=== PATIENT | female | born 1970 | race African-American/Black ===

== ENCOUNTER → 2022-09-09 | Outpatient (CLI) | payer OTHER, SELFPAY ==
[2022-09-09 12:30] LABS: ALB/GLOB Ratio 0.9 RATIO (0.9-2.4); AST(SGOT) 30 U/L (15-37); Alanine Aminotransfer ALT/SGPT 31 U/L (13-56); Albumin, Serum 4.3 g/dL (3.2-5.0); Alkaline Phosphatase 106 U/L (45-117); Anion Gap 6 (5-15); BUN 15 mg/dL (7-18); BUN/Creat Ratio 18.3 RATIO (10-20); Calcium,Total 9.4 mg/dL (8.5-10.1); Chloride 112 mmol/L (98-107); Cholesterol 296 mg/dL (200); Creatinine, Serum 0.82 mg/dL (0.55-1.02); EST Glomerular Filtration Rate 78 mL/min (>60); Est Glom Filt Rate - Afr Amer 94 mL/min (>60); Globulin 4.6 g/dL (2.2-4.2); Glucose 121 mg/dL (74-106); High Density Lipoprotein 63 mg/dL; Potassium 4.1 mmol/L (3.5-5.1); Protein, Total 8.9 g/dL (6.4-8.2); Sodium Level 141 mmol/L (136-145); Triglycerides 150 mg/dL; Very Low Density Lipoprotein 30 mg/dL (5-40)
== END | disposition home or self-care (01) ==
LOC: BIMLAB 10:13
PROVIDERS: Visit Provider Internal Medicine
DX: I10 Essential (primary) hypertension (principal)
CPT/HCPCS: 36415; 80053; 80061

== ENCOUNTER → 2022-10-03 | Outpatient (CLI) | payer OTHER, SELFPAY ==
--- NOTE | 2022-10-03 13:33 | BI_ITS ---
MAMMOGRAPHY - BILATERAL SCREENING 3-D TOMOSYNTHESIS REASON FOR EXAM: Female, 51 years old. Routine screening PERTINENT HISTORY: No significant family history. TECHNIQUE: 2-D mammograms and 3-D Tomosynthesis of the breast (s) were performed. CAD was performed. COMPARISON: No comparison mammograms available at this time. If any prior films become available, an addendum to this report can be generated. FINDINGS: The breast composition is composed of scattered fibroglandular density. Scattered benign calcifications are seen. No dense spiculated masses or suspicious microcalcifications are identified. No architectural distortion is identified. There is no skin thickening or retraction. BI/SCRN MAMM (CAD)W/SHENG BILAT IMPRESSION: No mammographic signs of malignancy. Routine yearly mammograms recommended. ASSESSMENT CATEGORY: BIRADS Category 2: Benign. A letter regarding these results will be sent to the patient by the facility within 30 days. FOLLOW UP RECOMMENDATION: Yearly follow up mammogram recommended. (A) Approximately 10% of breast cancers are not detected by mammography. A normal mammogram should not delay biopsy of a clinically suspicious abnormality. Electronically Signed: Nehemias Yi MD at 14:36 EDT ,
== END | disposition home or self-care (01) ==
LOC: OPBI 13:30
PROVIDERS: PCP Internal Medicine; Visit Provider Internal Medicine
DX: Z12.31 Encounter for screening mammogram for malignant neoplasm of breast (principal)
CPT/HCPCS: 77063; 77067

== ENCOUNTER 2022-10-10 11:01 | Outpatient (RCR) | payer OTHER, SELFPAY | END 2022-10-23 23:59 | LOC: NS 11:01 | PROVIDERS: PCP Internal Medicine; Visit Provider Internal Medicine | DX: Z71.3 Dietary counseling and surveillance (principal); E66.9 Obesity, unspecified | CPT/HCPCS: 97802 ==

== ENCOUNTER 2022-11-17 13:30 | Outpatient (RCR) | payer OTHER, SELFPAY | END 2022-11-23 23:59 | LOC: NS 13:30 | PROVIDERS: PCP Internal Medicine; Referring Provider Internal Medicine; Visit Provider Internal Medicine | DX: Z71.3 Dietary counseling and surveillance (principal); E66.9 Obesity, unspecified; Z68.31 Body mass index [BMI] 31.0-31.9, adult | CPT/HCPCS: 97803 ==

== ENCOUNTER → 2022-12-12 | Outpatient (CLI) | payer OTHER, SELFPAY ==
[2022-12-12 17:05] LABS: Absolute Lymphocyte Count 1.38 X10^3/uL (0.83-4.51); Absolute Neutrophil Count 1.6 X10^3/uL (2.0-7.7); Basophil# 0.07 X10^3/uL; Basophil% 1.8 % (0-1); Eosinophil# 0.31 X10^3/uL; Eosinophils% 8.1 % (0-5); Hematocrit 39.6 % (37-47); Hemoglobin 13.1 g/dL (12.0-15.0); Lymphocyte # 1.38 X10^3/ul (0.83-4.51); Lymphocyte % 36.2 % (19-41); Mean Corp Hgb Conc 33.1 g/dL (32-36); Mean Corpuscular Hgb 29.2 pg (27.0-32.0); Mean Corpuscular Volume 88.2 fL (81-99); Mean Platelet Vol. 11.5 fl (6.2-12.0); Monocyte# 0.45 X10^3/uL; Monocyte% 11.8 % (0-10); NRBC Flagged by Analyzer 0 % (0-5); Neutrophil % 42.1 % (47-70); Platelet Count 375 K/mm3 (150-450); RBC Distribution Width CV 14.3 % (11.6-14.6); Red Blood Count 4.49 M/mm3 (4.2-5.4); White Blood Count 3.8 K/mm3 (4.4-11.0)
[2022-12-12 17:15] LABS: ALB/GLOB Ratio 0.9 RATIO (0.9-2.4); AST(SGOT) 27 U/L (15-37); Alanine Aminotransfer ALT/SGPT 37 U/L (13-56); Albumin, Serum 3.8 g/dL (3.2-5.0); Alkaline Phosphatase 122 U/L (45-117); Anion Gap 5 (5-15); BUN 12 mg/dL (7-18); BUN/Creat Ratio 15.6 RATIO (10-20); Calcium,Total 8.9 mg/dL (8.5-10.1); Chloride 113 mmol/L (98-107); Cholesterol 176 mg/dL (200); Creatinine, Serum 0.77 mg/dL (0.55-1.02); EST Glomerular Filtration Rate 84 mL/min (>60); Est Glom Filt Rate - Afr Amer 101 mL/min (>60); Globulin 4.2 g/dL (2.2-4.2); Glucose 103 mg/dL (74-106); High Density Lipoprotein 62 mg/dL; Potassium 4.1 mmol/L (3.5-5.1); Sodium Level 141 mmol/L (136-145); Triglycerides 85 mg/dL; Very Low Density Lipoprotein 17 mg/dL (5-40)
== END | disposition home or self-care (01) ==
LOC: BIMLAB 14:48
PROVIDERS: PCP Internal Medicine; Referring Provider Internal Medicine; Visit Provider Internal Medicine
DX: I10 Essential (primary) hypertension (principal); E78.5 Hyperlipidemia, unspecified
CPT/HCPCS: 36415; 80053; 80061; 85025

== ENCOUNTER → 2023-07-26 | Outpatient (CLI) | payer OTHER, SELFPAY ==
[2023-07-26 16:40] LABS: Absolute Lymphocyte Count 1.89 X10^3/uL (0.83-4.51); Absolute Neutrophil Count 2.7 X10^3/uL (2.0-7.7); Basophil% 1.7 % (0-1); Eosinophil# 0.64 X10^3/uL; Eosinophils% 11.2 % (0-5); Hematocrit 43.4 % (37-47); Hemoglobin 14.2 g/dL (12.0-15.0); Lymphocyte # 1.89 X10^3/ul (0.83-4.51); Mean Corp Hgb Conc 32.7 g/dL (32-36); Mean Corpuscular Hgb 28.3 pg (27.0-32.0); Mean Corpuscular Volume 86.5 fL (81-99); Mean Platelet Vol. 11.4 fl (6.2-12.0); Monocyte# 0.44 X10^3/uL; Monocyte% 7.7 % (0-10); NRBC Flagged by Analyzer 0 % (0-5); Neutrophil # 2.65 X10^3/uL (2.7-7.7); Neutrophil % 46.2 % (47-70); Platelet Count 358 K/mm3 (150-450); RBC Distribution Width CV 15.3 % (11.6-14.6); RBC Distribution Width SD 48.2 fl (35.1-43.9); Red Blood Count 5.02 M/mm3 (4.2-5.4); White Blood Count 5.7 K/mm3 (4.4-11.0)
[2023-07-26 17:19] LABS: Anion Gap 2 (5-15); BUN 15 mg/dL (7-18); Calcium,Total 9.7 mg/dL (8.5-10.1); Chloride 111 mmol/L (98-107); Creatinine, Serum 0.79 mg/dL (0.55-1.02); EST Glomerular Filtration Rate 81 mL/min (>60); Est Glom Filt Rate - Afr Amer 98 mL/min (>60); Glucose 95 mg/dL (74-106); Potassium 4.5 mmol/L (3.5-5.1); Sodium Level 138 mmol/L (136-145); T4 Free Direct 1.12 ng/dL (0.76-1.46); Thyroid Stim Hormone (TSH) 2.56 uIU/mL (0.358-3.74)
== END | disposition home or self-care (01) ==
LOC: BIMLAB 15:19
PROVIDERS: PCP Internal Medicine; Referring Provider Internal Medicine; Visit Provider Internal Medicine
DX: I10 Essential (primary) hypertension (principal)
CPT/HCPCS: 36415; 80048; 84439; 84443; 85025

== ENCOUNTER → 2024-02-16 | Outpatient (CLI) | payer OTHER, SELFPAY ==
[2024-02-16 16:15] LABS: Absolute Lymphocyte Count 1.84 X10^3/uL (0.83-4.51); Absolute Neutrophil Count 1.7 X10^3/uL (2.0-7.7); Basophil% 2.2 % (0-1); Eosinophil# 0.38 X10^3/uL; Eosinophils% 8.4 % (0-5); Hematocrit 42.4 % (37-47); Hemoglobin 14.2 g/dL (12.0-15.0); Lymphocyte # 1.84 X10^3/ul (0.83-4.51); Lymphocyte % 40.8 % (19-41); Mean Corp Hgb Conc 33.5 g/dL (32-36); Mean Corpuscular Hgb 29.5 pg (27.0-32.0); Mean Corpuscular Volume 88.1 fL (81-99); Mean Platelet Vol. 11.7 fl (6.2-12.0); Monocyte# 0.44 X10^3/uL; Monocyte% 9.8 % (0-10); NRBC Flagged by Analyzer 0 % (0-5); Neutrophil # 1.74 X10^3/uL (2.7-7.7); Neutrophil % 38.6 % (47-70); Platelet Count 323 K/mm3 (150-450); RBC Distribution Width CV 13.3 % (11.6-14.6); Red Blood Count 4.81 M/mm3 (4.2-5.4); White Blood Count 4.5 K/mm3 (4.4-11.0)
[2024-02-16 16:29] LABS: ALB/GLOB Ratio 0.9 RATIO (0.9-2.4); AST(SGOT) 27 U/L (15-37); Alanine Aminotransfer ALT/SGPT 42 U/L (13-56); Albumin, Serum 3.9 g/dL (3.2-5.0); Alkaline Phosphatase 119 U/L (45-117); Anion Gap 6 (5-15); BUN 7 mg/dL (7-18); BUN/Creat Ratio 8.6 RATIO (10-20); Calcium,Total 9.3 mg/dL (8.5-10.1); Chloride 111 mmol/L (98-107); Cholesterol 187 mg/dL (200); Creatinine, Serum 0.81 mg/dL (0.55-1.02); EST Glomerular Filtration Rate 78 mL/min (>60); Est Glom Filt Rate - Afr Amer 94 mL/min (>60); Globulin 4.5 g/dL (2.2-4.2); Glucose 93 mg/dL (74-106); High Density Lipoprotein 61 mg/dL; Protein, Total 8.4 g/dL (6.4-8.2); Sodium Level 142 mmol/L (136-145); Triglycerides 159 mg/dL; Very Low Density Lipoprotein 32 mg/dL (5-40)
== END | disposition home or self-care (01) ==
LOC: BIMLAB 14:46
PROVIDERS: PCP Internal Medicine; Referring Provider Internal Medicine; Visit Provider Internal Medicine
DX: I10 Essential (primary) hypertension (principal)
CPT/HCPCS: 36415; 80053; 80061; 85025

== ENCOUNTER → 2024-08-06 | Outpatient (CLI) | payer OTHER, SELFPAY ==
[2024-08-06 12:22] LABS: Estradiol 12.8 pg/mL
[2024-08-12 11:08] LABS: HPV APTIMA, High Risk Negative (Negative)
== END | disposition home or self-care (01) ==
LOC: BWCLAB 11:22
PROVIDERS: PCP Internal Medicine; Referring Provider Nurse Practitioner Women's Health; Visit Provider Nurse Practitioner Women's Health
DX: Z12.4 Encounter for screening for malignant neoplasm of cervix (principal); N95.1 Menopausal and female climacteric states; N89.8 Other specified noninflammatory disorders of vagina
CPT/HCPCS: 36415; 82670; 83001; 87070; 87205; 87624; 88175; G0145

== ENCOUNTER → 2024-10-30 | Outpatient (CLI) | payer OTHER, SELFPAY ==
[2024-10-30 12:53] LABS: Absolute Lymphocyte Count 1.49 X10^3/uL (0.83-4.51); Basophil# 0.09 X10^3/uL; Basophil% 2.1 % (0-1); Eosinophil# 0.35 X10^3/uL; Hematocrit 42.3 % (37-47); Hemoglobin 14.6 g/dL (12.0-15.0); Lymphocyte # 1.49 X10^3/ul (0.83-4.51); Lymphocyte % 33.9 % (19-41); Mean Corp Hgb Conc 34.5 g/dL (32-36); Mean Corpuscular Hgb 29.9 pg (27.0-32.0); Mean Corpuscular Volume 86.5 fL (81-99); Monocyte# 0.41 X10^3/uL; Monocyte% 9.3 % (0-10); NRBC Flagged by Analyzer 0 % (0-5); Neutrophil # 2.04 X10^3/uL (2.7-7.7); Neutrophil % 46.5 % (47-70); Platelet Count 284 K/mm3 (150-450); RBC Distribution Width CV 13.8 % (11.6-14.6); RBC Distribution Width SD 43.8 fl (35.1-43.9); Red Blood Count 4.89 M/mm3 (4.2-5.4); White Blood Count 4.4 K/mm3 (4.4-11.0)
[2024-10-30 14:01] LABS: ALB/GLOB Ratio 1.2 RATIO (0.9-2.4); AST(SGOT) 35 U/L (<=31); Alanine Aminotransfer ALT/SGPT 36 U/L (<=34); Albumin, Serum 4.4 g/dL (3.5-5.0); Alkaline Phosphatase 110 U/L (35-104); Anion Gap 12 (5-15); BUN 14 mg/dL (4-19); BUN/Creat Ratio 19.7 RATIO (10-20); Calcium,Total 9.5 mg/dL (7.6-11.0); Chloride 110 mmol/L (98-108); Cholesterol 218 mg/dL (<=200); EST Glomerular Filtration Rate 103 (>60); Globulin 3.6 g/dL (2.2-4.2); Glucose 119 mg/dL (70-99); High Density Lipoprotein 50 mg/dL; Low Density Lipoprotein Calc. 132 mg/dL; Sodium Level 141 mmol/L (133-145); Total Bilirubin 1.07 mg/dL (0.00-1.30); Triglycerides 181 mg/dL; Very Low Density Lipoprotein 36 mg/dL (5-40); cholesterol:hdl ratio screen 4.34
[2024-10-30 14:14] LABS: Vitamin D,25 Hydroxy 20.7 ng/mL (30-100)
== END | disposition home or self-care (01) ==
LOC: BIMLAB 08:13
PROVIDERS: PCP Internal Medicine; Referring Provider Physician Assistant; Visit Provider Physician Assistant
DX: I10 Essential (primary) hypertension (principal); E78.5 Hyperlipidemia, unspecified; E66.9 Obesity, unspecified; E55.9 Vitamin D deficiency, unspecified
CPT/HCPCS: 36415; 80053; 80061; 82306; 84443; 85025

== ENCOUNTER → 2025-05-23 | Outpatient (CLI) | payer OTHER, SELFPAY ==
--- OUTSIDE RECORDS SUMMARY | 2025-05-23 07:55 | XMS RPT_ITS | CCD ---
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 ALMAGUER During your visit today, we recorded the following information about you: Pulse Respiration Blood pressure Weight 63/minute 14/minute 134/86 108 kg Height 1.791 m Rosalind Almaguer MD 01/20/2025 8:35 AM Signed . [facility] [place] Note Patient name: Julieta Valle PCP: Kenzie Espana MD Referring Physician: Self Recording using ambient Appiphany software for draft documentation of the visit was discussed with the patient/authorized senior account representative; all questions welcomed and answered. Patient/authorized senior account representative agreed to proceed CC: Lung nodules noted on chest x-ray HPI: Julieta Valle 54 year old female former 9-pack-year smoker, quitting in 1998 with PMH significant for obesity, asthma, HTN, and HLD. Recently seen in ED for chest pain in association with elevated BP. CXR showed nodular densities in both lung colon with question of EKG pad on one side and nipple shadow on the other. She has a history of asthma since childhood which she describes as mild. No need for controller inhaler therapy. She denies any significant respiratory symptoms such as shortness of breath, wheezing, cough. She had chest pain associated with her hypertensive episode. No prior history of cancer or family history of cancer. She is a former smoker 1 pack a day for 9 years. She quit more than 15 years ago. DATA: Imaging / Diagnostic Studies: DATE OF EXAM: Nov 24 2024 3:43AM EGX 5291 - XR CHEST 2V FRONTAL/LAT / IMPRESSION: No acute radiographic abnormality. Questionable nodular densities, uncertain whether they are artifactual. Non-emergent follow-up after removal of overlying objects and placement of nipple markers recommended. I personally reviewed the images as well as with the patient and agree with the above assessment PAST MEDICAL HISTORY Diagnosis Date Asthma BMI 34.0-34.9,adult 06/30/2016 Obesity (BMI 30.0-34.9) 06/30/2016 Oral herpes simplex infection 09/18/2013 Other and unspecified hyperlipidemia 09/18/2013 Unspecified essential hypertension 08/19/2013 ALLERGIES No Known Allergies amLODIPine-Valsartan 5-320 mg per tablet Take 1 tablet by mouth once daily. cholecalciferol, Vitamin D3, (VITAMIN D3) 1,250 mcg (50,000 unit) cap capsule Take 1 capsule by mouth one time a week. albuterol HFA (PROAIR HFA) 90 mcg/actuation inhaler Inhale 2 Puffs as instructed every 4 hours as needed. atorvastatin (LIPITOR) 20 mg tablet Take 20 mg by mouth once daily. Social History Tobacco Use Smoking status: Former Average packs/day: 1 pack/day for 9.0 years (9.0 ttl pk-yrs) Types: Cigarettes Start date: 1989 Smokeless tobacco: Never Tobacco comments: Started at age 19 Vaping Use Vaping status: Never Used Substance Use Topics Alcohol use: Yes Drug use: No FAMILY HISTORY Problem Relation Age of Onset Hypertension Mother Hypertension Father Diabetes Father No Ocular Disease Other PAST SURGICAL HISTORY Procedure Laterality Date NONE PMH, Social history, family history and surgical history reviewed and updated in EMR REVIEW OF SYSTEMS: CONSTITUTIONAL: No fevers, chills, nightsweats, unintended weight loss HEENT: Denies nasal congestion/sinus symptoms, allergy problems. EYES: No visual changes CARDIOVASCULAR: No chest pain, dyspnea, palpitations, orthopnea, edema. PULM: See HPI GI: No reflux NEURO: No strokelike symptoms PSY: No concerns INTEGUMENTARY: No new skin changes, eczema PHYSICAL EXAMINATION: BP 134/86 Pulse 63 Resp 14 Ht 5' 10.5 (1.79m) Wt 238 lb (108.0kg) SpO2 96% LMP 01/07/2023 BMI 33.66 kg/(m2). General Appearance: Age-appropriate female, NAD. Skin: Skin color, texture, turgor normal, no suspicious rashes or lesions. Head: Normocephalic, no masses, lesions, tenderness or abnormalities. Neck: No masses or adenopathy. Lungs: Not labored, normal to percussion, no wheezes or crackles. Heart: Regular rate and rhythm, no murmurs. Extremities:, No clubbing. Assessment/Plan: 1. Abnormal chest x-ray with multiple nodules -Questionable nodules. Repeat chest x-ray with nipple markers. If nodularity persistent, will order CT of the chest Rosalind Almaguer MD [facility] [place] Allergies As of Date: 01/20/2025 (No Known Allergies) Date Reviewed: 01/20/2025 Reviewed by: Rosalind Almaguer MD - Fully Assessed Reason for Visit: New Patient [172] Cmt: Lung nodule Primary Visit Diagnosis:Abnormal CXR with multiple nodules [R91.8] Order(s):XR CHEST 2V FRONTAL/LAT [[id number]] Order #: [id number] FUTURE Prescriptions as of 01/20/2025 - amLODIPine-Valsartan 5-320 mg per tablet Take 1 tablet by mouth once daily. - cholecalciferol, Vitamin D3, (VITAMIN D3) 1,250 (more content not included)... Normal [facility] XR CHEST 2V FRONTAL/LATon XR CHEST 2V FRONTAL/LAT * * *Final Repor t* * * DATE OF EXAM: Jan 20 2025 9:26AM WRX 5291 - XR CHEST 2V FRONTAL/LAT / PROCEDURE REASON: * * * * Physician Interpretation * * * * EXAMINATION: CHEST RADIOGRAPH (2 VIEW FRONTAL and LATERAL) CLINICAL HISTORY: Abnormal chest x-ray. MQ: XC2_6 EXAM DATE/TIME: 01/20/2025 9:26 AM COMPARISON: No relevant prior studies available. RESULT: Lines, tubes, and devices: None. Lungs and pleura: No consolidation. No definite lung nodules visualized on the current study. No lung mass. No pleural effusion. No pneumothorax. Cardiomediastinal silhouette: Normal cardiomediastinal silhouette. Bones and soft tissues: Unremarkable. IMPRESSION: No acute radiographic abnormality. Sociology Professor: JACK Transcribe Date/Time: Jan 20 2025 11:26A Dictated by : DULCE SALINAS MD This examination was interpreted and the report reviewed and electronically signed by: DULCE SALINAS MD on Jan 20 2025 11:27AM EST [id number] CN Normal [facility] XR Chest PA and Lateralon IMPRESSION: No acute radiographic abnormality. Sociology Professor: [facility] Transcribe Date/Time: Jan 20 2025 11:26A Dictated by : DULCE SALINAS MD This examination was interpreted and the report reviewed and electronically signed by: DULCE SALINAS MD on Jan 20 2025 11:27AM EST DIVISION OF RADIOLOGY * * *Final Report* * * DATE OF EXAM: Jan 20 2025 9:26AM WRX 5291 - XR CHEST 2V FRONTAL/LAT / PROCEDURE REASON: * * * * Physician Interpretation * * * * EXAMINATION: CHEST RADIOGRAPH (2 VIEW FRONTAL & LATERAL) CLINICAL HISTORY: Abnormal chest x-ray. MQ: XC2_6 EXAM DATE/TIME: 01/20/2025 9:26 AM COMPARISON: No relevant prior studies available. RESULT: Lines, tubes, and devices: None. Lungs and pleura: No consolidation. No definite lung nodules visualized on the current study. No lung mass. No pleural effusion. No pneumothorax. Cardiomediastinal silhouette: Normal cardiomediastinal silhouette. Bones and soft tissues: Unremarkable. DIVISION OF RADIOLOGY Provider, [facility] [place] - 01/20/2025 * * *Final Report* * * DATE OF EXAM: Jan 20 2025 9:26AM WRX 5291 - XR CHEST 2V FRONTAL/LAT / PROCEDURE REASON: * * * * Physician Interpretation * * * * EXAMINATION: CHEST RADIOGRAPH (2 VIEW FRONTAL & LATERAL) CLINICAL HISTORY: Abnormal chest x-ray. MQ: XC2_6 EXAM DATE/TIME: 01/20/2025 9:26 AM COMPARISON: No relevant prior studies available. RESULT: Lines, tubes, and devices: None. Lungs and pleura: No consolidation. No definite lung nodules visualized on the current study. No lung mass. No pleural effusion. No pneumothorax. Cardiomediastinal silhouette: Normal cardiomediastinal silhouette. Bones and soft tissues: Unremarkable. IMPRESSION IMPRESSION: No acute radiographic abnormality. Sociology Professor: [facility] Transcribe Date/Time: Jan 20 2025 11:26A Dictated by : DULCE SALINAS MD This examination was interpreted and the report reviewed and electronically signed by: DULCE SALINAS MD on Jan 20 2025 11:27AM EST [facility] Radiology Study observation (narrative) Che valverde [facility] XR Chest PA and LateralOrder ed By: [facility] Provider on 01-20-2025 [facility] Office Visit Reporton 2024 Office Visit Report [facility] [address] [place] [address] OFFICE VISIT Date of Service: 11/26/24 MR#: [id number] Acct: [id number] Patient: JULIETA VALLE Rep #: [id number] : 1970 Provider: ILIANA NURSE Age/Sex: 53/F Location: [facility] [place] Status: Signed Intake Vital Signs 11/13/24 16:13 11/26/24 15:23 Height 5 ft 10 in Weight: 236 lb BMI 33.8 BP 162/108 H 152/94 H Blood Pressure Location Rt brachial Lt brachial Position Sitting Sitting Respiration 16 Pulse 69 Pulse Source Monitor Temp 96.7 F L Temp Source Temporal Pulse Oximetry (%) 96 Oxygen Delivery Method room air Intake Visit Reasons: BP CHECK Chief Complaint: bp issues Allergies No Known Allergies Allergy (Verified 11/13/24 16:07) Nurse's Note: Pt states she was in [facility] ER on 11/23/24. Pt states her Bp has been running high and was and chest pains and palpitations accompanied this. Pt states a whole workup was ran including ekg and labs. Cardiac was ruled out but is still awaiting more tested... [facility] records releasem signed and faxed to obtain records. Pt did want to see PCP and not PA or TRAY WORKER as she has not seen her in awhile. Pt states her Bp this morning at 12:30am was 152/103 pt did not have BP cuff w/ her as it has already been checked for accuracy. Pt currently denies chest pain,palptations headaches or vision changes. 11/27/24 1326 Date Bryant Winter Signature: Date (if applicable) CC: Normal [facility] CBC W Auto Differential pane l (Bld)on 11-24-2024 Basophils (Bld) [#/Vol] 0.13 10*3/uL High <0.11 [facility] Comment on above: Order Comment: Speci men Type: BLOOD SPECIMEN Ordering Facility: [facility] Address: [address] [place] [address] Performed By: #### 5 5454-3, 07361-1 #### [facility] CLIA [id number] [address] [place] [address] [place] [address] [place] Basophils/100 WBC (Bld) 2.0 % Normal [facility] Comment on above: Order Comment: Speci men Type: BLOOD SPECIMEN Ordering Facility: [facility] Address: [address] [place] [address] Performed By: #### 5 5454-3, 21229-1 #### [facility] CLIA [id number] [address] [place] [address] [place] Differential cell count method Nom (Bld) Auto Normal [facility] Comment on above: Order Comment: Speci men Type: BLOOD SPECIMEN Ordering Facility: [facility] Address: [address] [place] [address] Performed By: #### 5 5454-3, 98439-3 #### [facility] CLIA [id number] [address] [place] [address] [place] Eosinophils (Bld) [#/Vol] 0.44 10*3/uL Normal <0.46 [facility] Comment on above: Order Comment: Speci men Type: BLOOD SPECIMEN Ordering Facility: [facility] Address: [address] [place] [address] Performed By: #### 5 5454-3, 43682-7 #### [facility] CLIA [id number] [address] [place] [address] [place] Eosinophils/100 WBC (Bld) 6.7 % Normal [facility] Comment on above: Order Comment: Speci men Type: BLOOD SPECIMEN Ordering Facility: [facility] Address: [address] [place] [address] Performed By: #### 5 5454-3, 51968-8 #### [facility] CLIA [id number] [address] [place] [address] [place] Erythrocyte distribution width (RBC) [Ratio] 13.5 % Normal 11.5-15.0 [facility] Comment on above: Order Comment: Speci men Type: BLOOD SPECIMEN Ordering Facility: [facility] Address: [address] [place] [address] Performed By: #### 5 5454-3, 46950-4 #### [facility] CLIA [id number] [address] [place] [address] [place] Hematocrit (Bld) [Volume fraction] 43.2 % Normal 36.0-46.0 [facility] Comment on above: Order Comment: Speci men Type: BLOOD SPECIMEN Ordering Facility: [facility] Address: [address] [place] [address] Performed By: #### 5 5454-3, 52922-7 #### [facility] CLIA [id number] [address] [place] [address] [place] Hemoglobin (Bld) [Mass/Vol] 15.0 g/dL Normal 11.5-15.5 [facility] Comment on above: Order Comment: Speci men Type: BLOOD SPECIMEN Ordering Facility: [facility] Address: [address] [place] [address] Performed By: #### 5 5454-3, 98881-2 #### [facility] CLIA [id number] [address] [place] [address] [place] Immature granulocytes (Bld) [#/Vol] 10*3/uL Normal <0.10 [facility] Comment on above: Order Comment: Speci men Type: BLOOD SPECIMEN Ordering Facility: [facility] Address: [address] [place] [address] Performed By: #### 5 5454-3, 69943-0 #### [facility] CLIA [id number] [address] [place] [address] [place] Immature granulocytes/100 WBC (Bld) 0.3 % Normal [facility] Comment on above: Order Comment: Speci men Type: BLOOD SPECIMEN Ordering Facility: [facility] Address: [address] [place] [address] Performed By: #### 5 5454-3, 28711-9 #### [facility] CLIA [id number] [address] [place] [address] [place] Lymphocytes (Bld) [#/Vol] 2.26 10*3/uL Normal 1.00-4.00 [facility] Comment on above: Order Comment: Speci men Type: BLOOD SPECIMEN Ordering Facility: [facility] Address: [address] [place] [address] Performed By: #### 5 5454-3, 90553-5 #### [facility] CLIA [id number] [address] [place] [address] [place] Lymphocytes/100 WBC (Bld) 34.7 % Normal [facility] Comment on above: Order Comment: Speci men Type: BLOOD SPECIMEN Ordering Facility: [facility] Address: [address] [place] [address] Performed By: #### 5 5454-3, 59778-0 #### [facility] CLIA [id number] [address] [place] [address] [place] MCH (RBC) [Entitic mass] 29.7 pg Normal 26.0-34.0 [facility] Comment on above: Order Comment: Speci men Type: BLOOD SPECIMEN Ordering Facility: [facility] Address: [address] [place] [address] Performed By: #### 5 5454-3, 61150-1 #### [facility] CLIA [id number] [address] [place] [address] [place] MCHC (RBC) [Mass/Vol] 34.7 g/dL Normal 30.5-36.0 [facility] Comment on above: Order Comment: Speci men Type: BLOOD SPECIMEN Ordering Facility: [facility] Address: [address] [place] [address] Performed By: #### 5 5454-3, 05789-2 #### [facility] CLIA [id number] [address] [place] [address] [place] MCV (RBC) [Entitic vol] 85.5 fL Normal 80.0-100.[address] [facility] Comment on above: Order Comment: Speci men Type: BLOOD SPECIMEN Ordering Facility: [facility] Address: [address] [place] [address] Performed By: #### 5 5454-3, 57699-3 #### [facility] CLIA [id number] [address] [place] [address] [place] Monocytes (Bld) [#/Vol] 0.68 10*3/uL Normal <0.87 [facility] Comment on above: Order Comment: Speci men Type: BLOOD SPECIMEN Ordering Facility: [facility] Address: [address] [place] [address] Performed By: #### 5 5454-3, 76637-5 #### [facility] CLIA [id number] [address] [place] [address] [place] Monocytes/100 WBC (Bld) 10.4 % Normal [facility] Comment on above: Order Comment: Speci men Type: BLOOD SPECIMEN Ordering Facility: [facility] Address: [address] [place] [address] Performed By: #### 5 5454-3, 39886-3 #### [facility] CLIA [id number] [address] [place] [address] [place] Neutrophils (Bld) [#/Vol] 2.99 10*3/uL Normal 1.45-7.50 [facility] Comment on above: Order Comment: Speci men Type: BLOOD SPECIMEN Ordering Facility: [facility] Address: [address] [place] [address] Performed By: #### 5 5454-3, 43723-7 #### [facility] CLIA [id number] [address] [place] [address] [place] Neutrophils/100 WBC (Bld) 45.9 % Normal [facility] Comment on above: Order Comment: Speci men Type: BLOOD SPECIMEN Ordering Facility: [facility] Address: [address] [place] [address] Performed By: #### 5 5454-3, 14066-9 #### [facility] CLIA [id number] [address] [place] [address] [place] Nucleated RBC (Bld) [#/Vol] 10*3/uL Normal <0.01 [facility] Comment on above: Order Comment: Speci men Type: BLOOD SPECIMEN Ordering Facility: [facility] Address: [address] [place] [address] Performed By: #### 5 5454-3, 09653-2 #### [facility] CLIA [id number] [address] [place] [address] [place] Nucleated RBC/100 WBC (Bld) [Ratio] 0.0 /100 WBC Normal [facility] Comment on above: Order Comment: Speci men Type: BLOOD SPECIMEN Ordering Facility: [facility] Address: [address] [place] [address] Performed By: #### 5 5454-3, 67010-6 #### [facility] CLIA [id number] [address] [place] [address] [place] Platelet mean volume (Bld) [Entitic vol] 11.2 fL Normal 9.0-12.7 [facility] Comment on above: Order Comment: Speci men Type: BLOOD SPECIMEN Ordering Facility: [facility] Address: [address] [place] [address] Performed By: #### 5 5454-3, 10674-6 #### [facility] CLIA [id number] [address] [place] [address] [place] Platelets (Bld) [#/Vol] 298 10*3/uL Normal 150-400 [facility] Comment on above: Order Comment: Speci men Type: BLOOD SPECIMEN Ordering Facility: [facility] Address: [address] [place] [address] Performed By: #### 5 5454-3, 52019-2 #### [facility] CLIA [id number] [address] [place] [address] [place] RBC (Bld) [#/Vol] 5.05 10*6/uL Normal 3.90-5.20 [facility] Comment on above: Order Comment: Speci men Type: BLOOD SPECIMEN Ordering Facility: [facility] Address: [address] [place] [address] Performed By: #### 5 5454-3, 84364-0 #### [facility] CLIA [id number] [address] [place] [address] [place] WBC (Bld) [#/Vol] 6.52 10*3/uL Normal 3.70-11.00 [facility] Comment on above: Order Comment: Speci men Type: BLOOD SPECIMEN Ordering Facility: [facility] Address: [address] [place] [address] Performed By: #### 5 5454-3, 22556-2 #### [facility] CLIA [id number] [address] [place] [address] [place] Comprehensive metabolic 2000 panelon 11-24-2024 Albumin [Mass/Vol] 4.5 g/dL Normal 3.9-4.9 [facility] Comment on above: Order Comment: Speci men Type: BLOOD SPECIMEN Ordering Facility: [facility] Address: [address] [place] [address] Performed By: #### 2 4323-8, 79484-3, [id number] #### [facility] CLIA [id number] [address] [place] [address] [place] ALP [Catalytic activity/Vol] 127 U/L High 34-123 [facility] Comment on above: Order Comment: Speci men Type: BLOOD SPECIMEN Ordering Facility: [facility] Address: [address] [place] [address] Performed By: #### 2 4323-8, 44924-9, [id number] #### [facility] CLIA [id number] [address] [place] [address] [place] ALT [Catalytic activity/Vol] 34 U/L Normal 7-38 [facility] Comment on above: Order Comment: Speci men Type: BLOOD SPECIMEN Ordering Facility: [facility] Address: [address] [place] [address] Performed By: #### 2 4323-8, , [id number] #### [facility] CLIA [id number] [address] [place] [address] [place] Anion gap [Moles/Vol] 14 mmol/L Normal 8-15 [facility] Comment on above: Order Comment: Speci men Type: BLOOD SPECIMEN Ordering Facility: [facility] Address: [address] [place] [address] Performed By: #### 2 4323-8, , [id number] #### [facility] CLIA [id number] [address] [place] [address] [place] AST [Catalytic activity/Vol] 35 U/L Normal 13-35 [facility] Comment on above: Order Comment: Speci men Type: BLOOD SPECIMEN Ordering Facility: [facility] Address: [address] [place] [address] Result Comment: Resu lts may be falsely increased due to interference from hemolysis. Suggest reorder as clinically indicated. Performed By: #### 2 4323-8, , [id number] #### [facility] CLIA [id number] [address] [place] [address] [place] Bilirubin [Mass/Vol] 0.7 mg/dL Normal 0.2-1.3 [facility] Comment on above: Order Comment: Speci men Type: BLOOD SPECIMEN Ordering Facility: [facility] Address: [address] [place] [address] Performed By: #### 2 4323-8, , [id number] #### [facility] CLIA [id number] [address] [place] [id number] [place] Calcium [Mass/Vol] 9.4 mg/dL Normal 8.5-10.2 [facility] Comment on above: Order Comment: Speci men Type: BLOOD SPECIMEN Ordering Facility: [facility] Address: [address] [place], [place] [address] Performed By: #### 2 432-8, , [id number] #### [facility] CLIA [id number] [address] [place] [address] [place] Chloride [Moles/Vol] 109 mmol/L High 98-107 [facility] Comment on above: Order Comment: Speci men Type: BLOOD SPECIMEN Ordering Facility: [facility] Address: [address] [place] [address] Performed By: #### 2 4328, , [id number] #### [facility] CLIA [id number] [address] [place], [place] [address] [place] CO2 [Moles/Vol] 19 mmol/L Low 22-30 [facility] Comment on above: Order Comment: Speci men Type: BLOOD SPECIMEN Ordering Facility: [facility] Address: [address] [place], [place] [address] Performed By: #### 2 432-8, , [id number] #### [facility] CLIA [id number] [address] [place], [place] [address] [place] Creatinine [Mass/Vol] 0.59 mg/dL Normal 0.58-0.96 [facility] Comment on above: Order Comment: Speci men Type: BLOOD SPECIMEN Ordering Facility: [facility] Address: [address] [place], [place] [address] Performed By: #### 2 4323-8, , [id number] #### [facility] CLIA [id number] [address] [place] [address] [place] Creatinine and Glomerular filtration rate.predicted panel (S/P/Bld) 107 mL/min/1.73m??? Normal >=60 [facility] Comment on above: Order Comment: Moises almendarez Type: BLOOD SPECIMEN Ordering Facility: [facility] Address: [address] [place] [address] Result Comment: Astrid mated Glomerular Filtration Rate (eGFR) is calculated using the 2020 CKD-EPI creatinine equation. This equation utilizes serum creatinine, sex, and age as parameters. The creatinine assay has traceable calibration to isotope dilution-mass spectrometry. Refer to KDIGO guidelines for clinical interpretation. In patients with unstable renal function, e.g. those with acute kidney injury, the eGFR may not accurately reflect actual GFR. Performed By: #### 2 4323-8, 02257-9, [id number] #### [facility] CLIA [id number] [address] [place] [address] [place] Glucose [Mass/Vol] 106 mg/dL High 74-99 [facility] Comment on above: Order Comment: Moises almendarez Type: BLOOD SPECIMEN Ordering Facility: [facility] Address: [address] [place] [address] Result Comment: The [place] Diabetes Association (ADA) provides guidance for cutoff values for fasting glucose and random glucose. The ADA defines fasting as no caloric intake for at least 8 hours. Fasting plasma glucose results between 100 to 125 mg/dL indicate increased risk for diabetes (prediabetes). Fasting plasma glucose results greater than or equal to 126 mg/dL meet the criteria for diagnosis of diabetes. In the absence of unequivocal hyperglycemia, results should be confirmed by repeat testing. In a patient with classic symptoms of hyperglycemia or hyperglycemic crisis, random plasma glucose results greater than or equal to 200 mg/dL meet the criteria for diagnosis of diabetes. Reference: Standards of Medical Care in Diabetes 2016, [place] Diabetes Association. Diabetes Care. 2016.39(Suppl 1). Performed By: #### 2 4323-8, 12471-3, [id number] #### [facility] CLIA [id number] [address] [place] [address] [place] Potassium [Moles/Vol] 4.0 mmol/L Normal 3.7-5.1 [facility] Comment on above: Order Comment: Speci men Type: BLOOD SPECIMEN Ordering Facility: [facility] Address: [address] [place] [address] Performed By: #### 2 4323-8, , [id number] #### [facility] CLIA [id number] [address] [place] [address] [place] Protein [Mass/Vol] 8.1 g/dL High 6.3-8.0 [facility] Comment on above: Order Comment: Speci men Type: BLOOD SPECIMEN Ordering Facility: [facility] Address: [address] [place] [address] Performed By: #### 2 4323-8, , [id number] #### [facility] CLIA [id number] [address] [place] [address] [place] Sodium [Moles/Vol] 142 mmol/L Normal 136-144 [facility] Comment on above: Order Comment: Speci men Type: BLOOD SPECIMEN Ordering Facility: [facility] Address: [address] [place] [address] Performed By: #### 2 4323-8, , [id number] #### [facility] CLIA [id number] [address] [place] [address] [place] Urea nitrogen [Mass/Vol] 11 mg/dL Normal 7-21 [facility] Comment on above: Order Comment: Speci men Type: BLOOD SPECIMEN Ordering Facility: [facility] Address: [address] [place] [address] Performed By: #### 2 4323-8, 10596-2, [id number] #### [facility] CLIA [id number] [address] [place], [place] [address] [place] [facility] Fibrin D-dimer FEU (PPP) [Mass/Vol] 510 ng/mL FEU High <500 [facility] Comment on above: Order Comment: Speci men Type: BLOOD SPECIMEN Ordering Facility: [facility] Address: [address] [place] [address] Performed By: #### 4 8065-7 #### [facility] CLIA [id number] [address] [place] [address] FAY30rs 11-24-2024 ECG01 Ventricular Rate : 85 BPM Atrial Rate : 85 BPM P-R Interval : 228 ms QRS Duration : 132 ms Q-T Interval : 402 ms QTC Calculation(Bazett) : 478 ms Calculated P [place] : 47 degrees Calculated R [place] : -53 degrees Calculated T [place] : 47 degrees SINUS RHYTHM WITH 1ST DEGREE AV BLOCK COMPLETE RIGHT BUNDLE BRANCH BLOCK LEFT ANTERIOR FASCICULAR BLOCK BIFASCICULAR BLOCK MINIMAL VOLTAGE CRITERIA FOR LVH, MAY BE NORMAL VARIANT ( R in aVL ) Septal Infarct , AGE UNDETERMINED ABNORMAL ECG NOTE: PLEASE SEE PHYSICIAN'S NOTE FROM E.D. VISIT Confirmed by DORENE BARRETT ([id number]), greeting card editor ALBERTO ARENAS ([id number]) on 11/26/2024 10:09:09 PM NAME : JULIETA VALLE PID : [id number] : 1970 Gender : Female Race : ORD : Procedure Date : Nov 24 2024 02:52:45 Edit Date : Nov 26 2024 22:09:13 Diagnosis: SINUS RHYTHM WITH 1ST DEGREE AV BLOCK COMPLETE RIGHT BUNDLE BRANCH BLOCK LEFT ANTERIOR FASCICULAR BLOCK BIFASCICULAR BLOCK MINIMAL VOLTAGE CRITERIA FOR LVH, MAY BE NORMAL VARIANT ( R in aVL ) Septal Infarct , AGE UNDETERMINED ABNORMAL ECG NOTE: PLEASE SEE PHYSICIAN'S NOTE FROM E.D. VISIT Confirmed by DORENE BARRETT ([id number]), greeting card editor ALBERTO ARENAS ([id number]) on 11/26/2024 10:09:09 PM Test Reason : Location : 2 : EDNS 004 Overread By : DORENE BARRETT Edited By : ALBERTO ARENAS Referred By : , Acquired by : Chrystal starkey [facility] ED NOTEon 11-24-2024 ED NOTE HNO ID: [id number] Author: DOLORES REBOLLEDO, RN Service: ? Author Type: Registered Nurse Type: ED Notes Filed: 11/24/2024 11:53 Note Text: D/C instructions provided to pt by this RN. Pt agreeable to follow-up as directed by provider, verbalized understanding of education and denied any further questions. PIV removed before departure. Pt ambulated out of ED in stable condition. Normal [facility] ED PROV NOTEon 11-24-2024 ED PROV NOTE HNO ID: [id number] Author: JESUS MANUEL PIERRE MD Service: Emergency Medicine Author Type: Physician Type: ED Provider Notes Filed: 11/24/2024 12:03 Note Text: ED Provider Note Patient Name: Julieta Valle : 1970 SERVICE DATE: 11/24/24 History Patient presents with: Chest Pain: Pt presents for CP that radiates down her left arm. States that it has been intermittent for the last 2 months. 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 Pt states that she usually goes to an ER in [place], but decided to come to [facility]. Takes BP meds as directed. 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 Pt states that she has had elevated BP readings at home for the past several months. She occassionally gets L sided neck pain with radiation to her L arm. When this happens, she checks her BP and it is often elevated. This time, she also experienced CP which she has not experienced in the past. She checked her BP at home and it was 170s/110s and she presented to the ED. She states the CP is L sided and describes it as a shooting sensation that comes and goes. It is not worse with activity, does not improve with rest, is not pleuritic. She did travel to [facility] by car approximately 2 weeks ago and stopped an estrogen containing pill around 2 months ago. No recent surgery, no hx of DVT or PE. In the ED, BP elevated to 180s/110s. HDS. PAST MEDICAL HISTORY Diagnosis Date Asthma BMI 34.0-34.9,adult 06/30/2016 Obesity (BMI 30.0-34.9) 06/30/2016 Oral herpes simplex infection 09/18/2013 Other and unspecified hyperlipidemia 09/18/2013 Unspecified essential hypertension 08/19/2013 PAST SURGICAL HISTORY Procedure Laterality Date NONE FAMILY HISTORY Problem Relation Age of Onset Hypertension Mother Hypertension Father Diabetes Father No Ocular Disease Other Social History Tobacco Use Smoking status: Former Current packs/day: 0.00 Types: Cigarettes Quit date: 09/19/1998 Years since quittin.2 Smokeless tobacco: Never Substance and Sexual Activity Alcohol use: Yes Drug use: No Sexual activity: Not on file ALLERGIES No Known Allergies Review of Systems Constitutional: Negative for chills, diaphoresis, fatigue and fever. HENT: Negative for congestion. Eyes: Positive for photophobia and visual disturbance. Respiratory: Negative for cough, chest tightness, shortness of breath and wheezing. Cardiovascular: Positive for chest pain. Negative for palpitations and leg swelling. Gastrointestinal: Negative for abdominal pain. Genitourinary: Positive for dysuria. Musculoskeletal: Negative for myalgias. Neurological: Positive for headaches. Negative for dizziness, syncope, speech difficulty, light-headedness and numbness. Physical Exam Vitals [11/24/24 0246] BP Pulse Temp Temp src Resp SpO2 Weight Height (!) 184/114 (!) 93 36.4 ?C (97.6 ?F) Oral 20 100 % -- -- Physical Exam Constitutional: General: She is not in acute distress. HENT: Head: Normocephalic and atraumatic. Eyes: Pupils: Pupils are equal, round, and reactive to light. Cardiovascular: Rate and Rhythm: Normal rate and regular rhythm. Heart sounds: No systolic murmur is present. No diastolic murmur is present. No S3 or S4 sounds. Pulmonary: Effort: Pulmonary effort is normal. Chest: Chest wall: Tenderness present. Abdominal: Palpations: Abdomen is soft. Tenderness: There is abdominal tenderness. Comments: Suprapubic tenderness Musculoskeletal: Cervical back: Normal range of motion. Right lower leg: Edema present. Left lower leg: Edema present. Comments: Trace BLE Edema Neurological: Mental Status: She is alert and oriented to person, place, and time. Diagnostic Testing ED Labs Ordered and Reviewed COMPLETE BLOOD COUNT AND DIFFERENTIAL - Abnormal; Notable for the following components: Result Value Ref Range Abs Baso 0.13 (*) <0.11 k/uL All other components within normal limits COMPREHENSIVE METABOLIC PANEL - Abnormal; Notable for the following components: Protein, Total 8.1 (*) 6.3 - 8.0 g/dL Alkaline Phosphatase 127 (*) 34 - 123 U/L Glucose 106 (*) 74 - 99 mg/dL Chloride 109 (*) 98 - 107 mmol/L CO2 19 (*) 22 - 30 mmol/L All other components within normal limits MAGNESIUM - Normal HIGH SENSITIVITY TROPONIN T (INITIAL) - Normal HIGH SENSITIVITY TROPONIN T (SECOND) - Normal Procedures ED Course / Clinical Impression ED Course as of 11/24/24 1132 Brandin Pearl's Documentation Sun Nov 24, 2024 0710 D dimer normal for age Clinical Impressions as of 11/24/24 1132 Lung nodule Essential hypertension Chest pain, non-cardiac MDM / Disposition / Plan This is a 53 yo F w/ PMHx HTN, HLD, asthma, presenting with w/ neck pain with radiation to chest and L arm 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 CP is non-cardiac in nature given transient sensations of shooting pa (more content not included)... Normal [facility] Fibrin D-dimer FEU (PPP) [Ma ss/Vol]on 11-24-2024 D DIMER AGE-RELATED CUTOFF 540 ng/mL FEU Normal [facility] Comment on above: Order Comment: Moises almendarez Type: BLOOD SPECIMEN Ordering Facility: [facility] Address: [address] [place] [address] Performed By: #### 4 8065-7 #### [facility] CLIA [id number] [address] [place] [address] [place] HIGH SENSITIVITY TROPONIN T (INITIAL)on 11-24-2024 Troponin T.cardiac High sensitivity method [Mass/Vol] <6 Normal <12 [facility] Comment on above: Order Comment: Masoodi men Type: BLOOD SPECIMENOrdering Facility: [facility] Address: [address] [place] [address] Performed By: #### 9 5941-1 #### [facility] CLIA [id number] [address] [place] [address] [place] HIGH SENSITIVITY TROPONIN T (SECOND)on 11-24-2024 Troponin T.cardiac High sensitivity method [Mass/Vol] <6 Normal <12 [facility] Comment on above: Order Comment: Moises almendarez Type: BLOOD SPECIMEN Ordering Facility: [facility] Address: [address] [place] [address] Performed By: #### 3 3762-6, [id number] #### [facility] CLIA [id number] [address] [place] [address] [place] [facility] [place] HbA1c (Bld)on 11-24-2024 Average glucose Estimated from glycated hemoglobin (Bld) [Mass/Vol] 123 mg/dL Normal [facility] Comment on above: Order Comment: Moises almendarez Type: BLOOD SPECIMEN Ordering Facility: [facility] Address: [address] [place] [address] Result Comment: eAG: (Estimated average glucose) is a calculated value from HgbA1c and is senior account representative of the average blood glucose level in the last 2-3 month period. Performed By: #### 5 5454-3, 81688-4 #### [facility] CLIA [id number] [address] [place] [address] [place] HbA1c (Bld) [Mass fraction] 5.9 % High 4.3-5.6 [facility] Comment on above: Order Comment: Moises almendarez Type: BLOOD SPECIMEN Ordering Facility: [facility] Address: [address] [place] [address] Result Comment: A he terozygous hemoglobin variant was possibly detected. Most heterozygous hemoglobin variants do not interfere with this assay. However, interpret this hemoglobin A1c result within the patient's clinical context, as the lifespan of red blood cells may be altered. If identification of a previously unidentified hemoglobin variant is clinically indicated, consider ordering the hemoglobin evaluation cascade test. [place] [employer] guidelines indicate that patients with HgbA1c in the range 5.7-6.4% are at increased risk for development of diabetes, and intervention by lifestyle modification may be beneficial. HgbA1c greater or equal to 6.5% is considered diagnostic of diabetes. Performed By: #### 5 5454-3, 58343-2 #### [facility] CLIA [id number] [address] [place] [address] [place] Magnesium [facility] Magnesium [Mass/Vol] 1.9 mg/dL Normal 1.7-2.3 [facility] Comment on above: Order Comment: Speci men Type: BLOOD SPECIMENOrdering Facility: [facility] Address: [address] [place] [address] Performed By: #### 9 5941-1 #### [facility] CLIA [id number] [address] [place] [address] [place] NT-proBNP [facility] Natriuretic peptide.B prohormone N-Terminal [Mass/Vol] <36 Normal <125 [facility] Comment on above: Order Comment: Speci men Type: BLOOD SPECIMEN Ordering Facility: [facility] Address: [address] [place] [address] Performed By: #### 3 3762-6, [id number] #### [facility] IA [id number] [address] [place] [address] [place] Urinalysis complete panel (U )on 11-24-2024 Bacteria LM.HPF (Urine sed) [#/Area] Negative Normal Negative [facility] Comment on above: Order Comment: Speci men Type: URINE SPECIMEN Ordering Facility: [facility] Address: [address] [place] [address] Performed By: #### 2 4356-8 #### [facility] CLIA [id number] [address] [place] [address] [place] Bilirubin Ql (U) Negative Normal Negative [facility] Comment on above: Order Comment: Speci men Type: URINE SPECIMEN Ordering Facility: [facility] Address: [address] [place] [address] Performed By: #### 2 4356-8 #### [facility] CLIA [id number] [address] [address] [place] Clarity (Unsp spec) Clear Normal Clear [facility] Comment on above: Order Comment: Speci men Type: URINE SPECIMEN Ordering Facility: [facility] Address: [address] [place] [address] Performed By: #### 2 4356-8 #### [facility] CLIA [id number] [address] [place], [place] [address] [place] Color (U) Yellow Normal Yellow [facility] Comment on above: Order Comment: Speci men Type: URINE SPECIMEN Ordering Facility: [facility] Address: [address] [place] [address] Performed By: #### 2 4356-8 #### [facility] CLIA [id number] [address] [place], [place] [address] [place] Epithelial cells LM.HPF (Urine sed) [#/Area] None Seen Normal [facility] Comment on above: Order Comment: Speci men Type: URINE SPECIMEN Ordering Facility: [facility] Address: [address] [place] [address] Performed By: #### 2 4356-8 #### [facility] CLIA [id number] [address] [place], [place] [address] [place] Glucose Test strip (U) [Mass/Vol] Negative Normal Negative [facility] Comment on above: Order Comment: Speci men Type: URINE SPECIMEN Ordering Facility: [facility] Address: [address] [place] [address] Performed By: #### 2 4356-8 #### [facility] CLIA [id number] [address] [place], [place] [address] [place] Hemoglobin Ql (U) Negative Normal Negative [facility] Comment on above: Order Comment: Speci men Type: URINE SPECIMEN Ordering Facility: [facility] Address: [address] [place] [address] Performed By: #### 2 4356-8 #### [facility] CLIA [id number] [facility] [place] [id number] [place] Hyaline casts (Urine sed) [#/Area] 0 /[LPF] Normal 0 /LPF [facility] Comment on above: Order Comment: Speci men Type: URINE SPECIMEN Ordering Facility: [facility] Address: [address] [place] [address] Performed By: #### 2 4356-8 #### [facility] CLIA [id number] [address] [place] [address] [place] Ketones Ql (U) Negative Normal Negative [facility] Comment on above: Order Comment: Speci men Type: URINE SPECIMEN Ordering Facility: [facility] Address: [address] [place] [address] Performed By: #### 2 4356-8 #### [facility] CLIA [id number] [address] [place] [address] [place] Leukocyte esterase Test strip Ql (U) Negative Normal Negative [facility] Comment on above: Order Comment: Speci men Type: URINE SPECIMEN Ordering Facility: [facility] Address: [address] [place] [address] Performed By: #### 2 4356-8 #### [facility] CLIA [id number] [address] [place] [address] [place] Nitrite Ql (U) Negative Normal Negative [facility] Comment on above: Order Comment: Speci men Type: URINE SPECIMEN Ordering Facility: [facility] Address: [address] [place] [address] Performed By: #### 2 4356-8 #### [facility] CLIA [id number] [address] [place] [address] [place] pH (U) 5.5 [pH] Normal <8.5 [facility] Comment on above: Order Comment: Speci men Type: URINE SPECIMEN Ordering Facility: [facility] Address: [address] [place] [address] Performed By: #### 2 4356-8 #### [facility] CLIA [id number] [address] [place] [address] [place] Protein (U) [Mass/Vol] Negative Normal Negative [facility] Comment on above: Order Comment: Speci men Type: URINE SPECIMEN Ordering Facility: [facility] Address: [address] [place] [address] Performed By: #### 2 4356-8 #### [facility] IA [id number] [address] [place] [address] [place] RBC LM.HPF (Urine sed) [#/Area] 0-2 /HPF Normal 0-2 /HPF [facility] Comment on above: Order Comment: Speci men Type: URINE SPECIMEN Ordering Facility: [facility] Address: [address] [place] [address] Performed By: #### 2 4356-8 #### [facility] IA [id number] [address] [place] [address] [place] Specific gravity (U) [Rel density] 1.014 Normal 1.005-1.030 [facility] Comment on above: Order Comment: Speci men Type: URINE SPECIMEN Ordering Facility: [facility] Address: [address] [place] [address] Performed By: #### 2 4356-8 #### [facility] IA [id number] [address] [place] [address] [place] Urobilinogen Ql (U) 0.2 EU/dL Normal 0.2-1.0 EU/dL [facility] Comment on above: Order Comment: Speci men Type: URINE SPECIMEN Ordering Facility: [facility] Address: [address] [place] [address] Performed By: #### 2 4356-8 #### [facility] IA [id number] [address] [place] [address] [place] WBC LM.HPF (Urine sed) [#/Area] 0-5 /HPF Normal 0-5 /HPF [facility] Comment on above: Order Comment: Speci men Type: URINE SPECIMEN Ordering Facility: [facility] Address: [address] [place] [address] Performed By: #### 2 4356-8 #### [facility] CLIA [id number] [address] [place] [address] [place] XR CHEST 2V FRONTAL/LATon XR CHEST 2V FRONTAL/LAT * * *Final Repor t* * * DATE OF EXAM: Nov 24 2024 3:43AM EGX 5291 - XR CHEST 2V FRONTAL/LAT / PROCEDURE REASON: Chest Pain * * * * Physician Interpretation * * * * EXAMINATION: CHEST RADIOGRAPH (2 VIEW FRONTAL and LATERAL) CLINICAL HISTORY: Chest Pain MQ: XC2_6 EXAM DATE/TIME: 11/24/2024 3:43 AM COMPARISON: No relevant prior studies available. RESULT: Lines, tubes, and devices: None. Lungs and pleura: No consolidation, pleural effusion, or pneumothorax. Couple of small, questionable nodular densities projecting over the lungs bilaterally, with the one on the left possibly related to an EKG pad. Cardiomediastinal silhouette: Normal cardiomediastinal silhouette. Bones and soft tissues: Unremarkable. IMPRESSION: No acute radiographic abnormality. Questionable nodular densities, uncertain whether they are artifactual. Non-emergent follow-up after removal of overlying objects and placement of nipple markers recommended. ACTIONABLE RESULT: FOLLOW-UP Acuity: Actionable Findings: Thoracic-Other Routing Code: CT_1 Recommendation: XR Chest 2 view Time Frame: At the discretion of the clinical team. COMMUNICATION: Results will be communicated with the ordering provider via [employer] staff message or phone message by [facility] within 2 business days of report finalization. --END OF FINDING-- Sociology Professor: JACK Transcribe Date/Time: Nov 24 2024 4:03A Dictated by : KELSEY CANTU MD This examination was interpreted and the report reviewed and electronically signed by: KELSEY CANTU MD on Nov 24 2024 4:08AM EST [id number] [email or web address] ACTIONABLE Invalid Interpretation Code [facility] Internal Medicine Office Vis iton 11-13-2024 Internal Medicine Office Visit [facility] [address] [place], [place] [address] OFFICE VISIT Date of Service: 11/13/24 MR#: [id number] Acct: [id number] Name: JULIETA VALLE Rep #: [id number] : 1970 Provider: SHAWN Rice Age/Sex: 53/F Location: [facility] Status: Signed Intake Vital Signs 11/04/24 14:30 11/07/24 09:07 11/13/24 16:13 Height 5 ft 10 in 5 ft 10 in 5 ft 10 in Weight: 236 lb BMI 33.8 BP 162/108 H Blood Pressure Location Rt brachial Position Sitting Respiration 16 Pulse 69 Pulse Source Monitor Temp 96.7 F L Temp Source Temporal Pulse Oximetry (%) 96 Oxygen Delivery Method room air Intake Visit Reasons: BP ISSUES Chief Complaint: bp issues Taproom Attendant Required: No Accompanied by: Self Is patient in pain?: No Allergies No Known Allergies Allergy (Verified 11/13/24 16:07) Medications ???Medication ???Instructions ???Recorded ???Confirmed ???Type albuterol sulfate 90 mcg/actuation 2 puff inhalation Q6H PRN 11/13/24 Rx aerosol inhaler shortness of breath or wheezing #8.5 grams atorvastatin 20 mg tablet 20 mg PO DAILY #90 tabs 10/30/24 0 11/13/24 Rx tirzepatide (weight loss) 2.5 2.5 mg (0.5 mL) subcut QWEEK #2 mL 10/31/24 11/13/24 Rx mg/0.5 mL subcutaneous pen injector (Zepbound) cholecalciferol (vitamin D3) 1,250 1,250 mcg PO QWEEK #12 caps 10/2411/13/24 Rx mcg (50,000 unit) capsule benazepril 20 mg tablet 40 mg (2 x 20 mg) PO DAILY #90 tab s 11/07/24 11/13/24 Rx famciclovir 500 mg tablet 500 mg PO DAILY PRN cold sores #90 11/07/24 11/13/24 Rx tabs amlodipine 5 mg-valsartan 320 mg 1 tab PO QDAY #30 tabs 11/13/24 Rx tablet Have you fallen in the past year?: No Nurse's Note: checking in to see of medication is working and she feels it is not doing the job with the bp [facility] Medical History Menopausal hot flushes Vaginal candidiasis Fatigue Hyperlipidemia Obesity (BMI 30-39.9) Colon cancer screening Bilateral knee pain Hypertension Asthma Family History Father Diabetes Hypertension Mother Hypertension Social History adopted: No Smoking Status: Former smoker quit date: 09/23/98 alcohol intake: current alcohol intake frequency: holidays/special occasions only substance use type: does not use what type of physical activity do you participate in: none seatbelt use: always do you feel safe at home: Yes additional social history: Single HPI HPI Chief Complaint: bp issues Details: JULIETA VALLE, is a 53 F who presents to the office today for follow-up of her blood pressure. Patient states that she is continue to have elevations in her blood pressure. She has been taking the 40 mg as directed and actually stopped the recent hormone therapy about a week ago. She states that she has not had any major symptoms but can tell when it is elevated and that she just feels a little off. She denies having any chest pains or pressure or shortness of breath, swelling in the extremities, or any other signs or symptoms. Patient has had a long history of having hypertension requiring medication treatment. ROS Const Constitutional: No body ache, excessive sweating, fatigue, fever(s), frequent falls, headache(s), snoring, weakness, weight change, sleep problems or change in appetite Eyes Eyes: No blurry vision, change in vision, eye pain or Light sensitivity ENT ENT: No abnormal hearing, ear or mastoid pain, tinnitus, nasal congestion, headache(s), neck pain or sore throat Resp Respiratory: No cough, shortness of breath, snoring or wheezing Cardio Cardiology: No chest pain at rest, chest pain with exertion, excessive sweating, shortness of breath, dyspnea on exertion, lightheadedness, orthopnea or palpitations Gastro GI: No abdominal pain, change in bowel habits, constipation, cramping, diarrhea, nausea/dyspepsia or vomiting Genitourinary-Female : No burning urination, painful urination, urinary incontinence, urinary frequency, blood in urine, abnormal periods or pelvic pain Musc Musculoskeletal: No abnormal gait, joint pain, back pain, limited range of motion, neck pain, numbness, stiffness, tingling or Arthritis Skin Skin: No dry skin, redness, lesions, itchy eyes, rash or wounds Neuro Neurology: No abnormal gait, abnormal hearing, abnormal speech, dizziness, weakness, frequent falls, headache(s), memory loss, numbness or tingling Psych Psychiatric: No anxiety, No change in appetite, No depression, No memory loss and No Thoughts of harming yourself/Others Endo Endocrine: No cold intolerance, excessive sweating, fatigue, flushing, heat intolerance, increased thirst/drinking (more content not included)... Normal [facility] Office Visit Reporton 2024 Office Visit Report [facility] [address] [place] [address]. [place] [address] OFFICE VISIT Date of Service: 11/07/24 MR#: [id number] Acct: [id number] Patient: JULIETA VALLE Rep #: [id number] : 1970 Provider: ILIANA NURSE Age/Sex: 53/F Location: [facility] [place] Status: Signed Intake Vital Signs 11/04/24 14:30 11/07/24 09:07 11/07/24 09:09 11/07/24 09:17 Height 5 ft 10 in 5 ft 10 in BP 175/110 H 178/110 H 168/100 H Blood Pressure Location Lt brachial Rt brachial Lt brachial Position Sitting Sitting Sitting Comment pt checked with home cuff nurse check manual BP recheck Intake Visit Reasons: BP check compare home cuff Chief Complaint: BP check compare home cuff Allergies No Known Allergies Allergy (Verified 11/04/24 14:23) Medications ???Medication ???Instructions ???Recorded ???Confirmed ???Type albuterol sulfate 90 mcg/actuation 2 puff inhalation Q6H PRN 11/07/24 Rx aerosol inhaler shortness of breath or wheezing #8.5 grams atorvastatin 20 mg tablet 20 mg PO DAILY #90 tabs 10/30/24 0 11/07/24 Rx tirzepatide (weight loss) 2.5 2.5 mg (0.5 mL) subcut QWEEK #2 mL 10/31/24 11/04/24 Rx mg/0.5 mL subcutaneous pen injector (Zepbound) cholecalciferol (vitamin D3) 1,250 1,250 mcg PO QWEEK #12 caps 10/2411/07/24 Rx mcg (50,000 unit) capsule benazepril 20 mg tablet 40 mg (2 x 20 mg) PO DAILY #90 tab s 11/07/24 11/07/24 Rx famciclovir 500 mg tablet 500 mg PO DAILY PRN cold sores #90 11/07/24 Rx tabs Nurse's Note: pt presents to office today with concerns about her blood pressure readings. brought log with her. copy placed in scan bin. pt denies chest pain or shortness of breath. states that TAWNYA Barrios had thought that her estradiol was causing the elevated readings, but pt states she stopped this on Monday. pt demonstrated proper application of blood pressure monitor. Obtained reading of 175/110 left arm. this nurse assessed manual reading of 178/110 on right arm. spoke with SHAWN Mccoy regarding this, gave him blood pressure log to review. ordered increase in benazapril to either 20mg BID or 40mg Daily. pt states she prefers 40mg daily in the AM and that she just got this refilled. pt instructed to call in 1-2 wks with blood pressure log or sooner if needed. states that she is to see Shola at the end of the month as she was already scheduled. Assessment and Plan Assessment and Plan Medications: Changed From benazepril 20 mg PO DAILY 90 tabs 1RF To benazepril 40 mg (2 x 20 mg) PO DAILY 90 tabs 1RF 11/08/24 9767 Date Bryant ESCOBAR Cosigner Signature: Date (if applicable) CC: Normal [facility] Incident Engineer Office Visit Reporton 11-04-2024 Incident Engineer Office Visit Report [facility] [address], [address] [place] [address] OFFICE VISIT Date of Service: 11/04/24 MR#: [id number] Acct: [id number] Name: JULEITA VALLE Rep #: [id number] : 1970 Provider: HERMINIA foss Age/Sex: 53/F [place] [facility] [place]: Signed Intake Vital Signs 10/21/24 10:20 10/30/24 07:41 11/04/24 14:24 11/04/24 14:30 Height 5 ft 10 in 5 ft 10 in 5 ft 10 in 5 ft 10 in Weight: 235 lb 2 oz 236 lb 8 oz BMI 33.7 33.9 BP 148/98 H 150/92 H Intake Visit Reasons: Med and BP Check *copay $40 Chief Complaint: med and BP check Taproom Attendant Required: No Is patient in pain?: No Allergies No Known Allergies Allergy (Verified 11/04/24 14:23) Medications ???Medication ???Instructions ???Recorded ???Confirmed ???Type famciclovir 500 mg tablet 500 mg PO DAILY PRN cold sores #90 09/15/23 11/04/24 Rx tabs albuterol sulfate 90 mcg/actuation 2 puff inhalation Q6H PRN 11/04/24 Rx aerosol inhaler shortness of breath or wheezing #8.5 grams atorvastatin 20 mg tablet 20 mg PO DAILY #90 tabs 10/30/24 0 11/04/24 Rx benazepril 20 mg tablet 20 mg PO DAILY #90 tabs 10/30/24 0 11/04/24 Rx tirzepatide (weight loss) 2.5 2.5 mg (0.5 mL) subcut QWEEK #2 mL 10/31/24 11/04/24 Rx mg/0.5 mL subcutaneous pen injector (Zepbound) Is last menstrual period known: No Post menopausal: Yes Patient : No : No PFSH Medical History Menopausal hot flushes Vaginal candidiasis Fatigue Hyperlipidemia Obesity (BMI 30-39.9) Colon cancer screening Bilateral knee pain Hypertension Asthma Family History Father Diabetes Hypertension Mother Hypertension Social History adopted: No Smoking Status: Former smoker quit date: 09/23/98 alcohol intake: current alcohol intake frequency: holidays/special occasions only substance use type: does not use what type of physical activity do you participate in: none seatbelt use: always do you feel safe at home: Yes additional social history: Single HPI Med and BP Check *copay $40 Details: JULIETA VALLE is a 53 year old who presents for medication and blood pressure check. She did not increase the estrogen patch dosage. She is on her blood pressure medication. BP is still high even at home. She had headache yesterday. History 3 Elective abortions Hx Para 2 Spontaneous abortions Hx # Term Pregnancies Ectopic pregnancies Hx # Pregnancies Multiple births # of living children 2 ROS Const Constitutional: Reports system reviewed and no additional complaints, except as documented Eyes Eyes: Reports system reviewed and no additional complaints, except as documented GI GI: Denies abdominal pain or change in bowel habits : Reports as per HPI Exam Const General: cooperative and no acute distress Orientation: oriented x3 HENMT Head: normal to inspection and normocephalic Eyes General: appearance normal, both eyes and all related structures Neck Neck: normal visual inspection Resp Effort Inspection: normal respiratory effort Neuro Cognition: normal cognition Speech: speech normal Psych Appearance: grossly normal Mood: congruent mood Affect: normal affect Speech and Movement: speech and movement normal Attitude: cooperative Judgment: judgment good Coding Level of Care Code Off vis,est,level 3 Diagnoses Climacteric N95.1 Menopausal hot flushes N95.1 Primary hypertension I10 Hypertension type: primary hypertension Assessment and Plan Assessment and Plan (1) Climacteric: Status: Acute (2) Menopausal hot flushes: Status: Acute Comment: HRT increased BP. consider effexor if hot flashes resume. (3) Hypertension: Status: Chronic Qualifiers: Hypertension type: primary hypertension Qualified Code(s): I10 - Essential (primary) hypertension Comment: DC'd HRT. Will see PCP. If controlled, may consider another HRT trial Medications: Discontinued progesterone micronized (Prometrium) Discontinued Reason: Order Changed 100 mg PO QHS 90 caps 0RF estradiol (Vivelle-Dot) apply 1 patch for 3 days alternating with 1 patch for 4 days each week Discontinued Reason: Order Completed 1 patch transdermal 2XW 8 ea 0RF Plan Discontinue estrogen and progesterone Will see PCP as HTN not controlled. 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 Signature: Date (if applicable) CC: Normal [facility] Absolute lymphocyte countOrd ered By: Bryant Peterson on 10-30-2024 Lymphocytes Auto (Unsp spec) [#/Vol] 1.49 10*3/uL 0.83-4.51 [facility] Absolute neutrophil countOrd ered By: Bryant Peterson on 10-30-2024 Neutrophils (Bld) [#/Vol] 2.0 10*3/uL 2.0-7.7 [facility] Anion gap in Serum or Plasma Ordered By: Bryant Peterson on 10-30-2024 Anion gap [Moles/Vol] 12 mmol/L 5-15 [facility] Automated lymphocyte count a s percentage of total leukocytesOrdered By: Bryant Peterson on 10-30-2024 Lymphocytes/100 WBC Auto (Unsp spec) 33.9 % 19-41 [facility] BUN/creatinine ratioOrdered By: Bryant Peterson on 10-30-2024 Urea nitrogen/Creatinine [Mass ratio] 19.7 mg/mg 10-20 [facility] Basophil percentageOrdered B y: Bryant Peterson on 10-30-2024 Basophils/100 WBC (Bld) 2.1 % High 0-1 [facility] Bilirubin, totalOrdered By: Bryant Peterson on 10-30-2024 Bilirubin [Mass/Vol] 1.07 mg/dL 0.00-1.30 [facility] CBC W/Diff, Automatedon Absolute Lymph 1.49 X10 3/uL Normal 0.83-4.51 [facility] Comment on above: Performed By: #### L 506.1001, L501.9520, L500.4050, L100.0100, L500.4100 #### [facility] [address] [place], [address] Absolute Neut 2.0 X10 3/uL Normal 2.0-7.7 [facility] Comment on above: Performed By: #### L 506.1001, L501.9520, L500.4050, L100.0100, L500.4100 #### [facility] [address] [place], [address] Basophils/100 WBC (Bld) 2.1 % High 0-1 [facility] Comment on above: Performed By: #### L 506.1001, L501.9520, L500.4050, L100.0100, L500.4100 #### [facility] [address] [place], [address] Eosinophils/100 WBC (Bld) 8.0 % High 0-5 [facility] Comment on above: Performed By: #### L 506.1001, L501.9520, L500.4050, L100.0100, L500.4100 #### [facility] [address] [place], [address] Erythrocyte distribution width (RBC) [Ratio] 13.8 % Normal 11.6-14.6 [facility] Comment on above: Performed By: #### L 506.1001, L501.9520, L500.4050, L100.0100, L500.4100 #### [facility] [address] [place], [address] Hematocrit (Bld) [Volume fraction] 42.3 % Normal 37-47 [facility] Comment on above: Performed By: #### L 506.1001, L501.9520, L500.4050, L100.0100, L500.4100 #### [facility] [address] [place], [address] Hemoglobin (Bld) [Mass/Vol] 14.6 g/dL Normal 12.0-15.0 [facility] Comment on above: Performed By: #### L 506.1001, L501.9520, L500.4050, L100.0100, L500.4100 #### [facility] [address] [place], [address] IG% 0.200 Normal 0.0-0.9 [facility] Comment on above: Result Comment: IG% - Immature Granulocytes (promyelocytes, myelocytes and metamyelocytes) > 1% indicates that a LEFT SHIFT is Present. Performed By: #### L 506.1001, L501.9520, L500.4050, L100.0100, L500.4100 #### [facility] [address] [place], [address] Lymphocytes/100 WBC (Bld) 33.9 % Normal 19-41 [facility] Comment on above: Performed By: #### L 506.1001, L501.9520, L500.4050, L100.0100, L500.4100 #### [facility] [address] [place], [address] MCH (RBC) [Entitic mass] 29.9 pg Normal 27.0-32.0 [facility] Comment on above: Performed By: #### L 506.1001, L501.9520, L500.4050, L100.0100, L500.4100 #### [facility] [address] [place], [address] MCHC (RBC) [Mass/Vol] 34.5 g/dL Normal 32-36 [facility] Comment on above: Performed By: #### L 506.1001, L501.9520, L500.4050, L100.0100, L500.4100 #### [facility] [address] [place], [address] MCV (RBC) [Entitic vol] 86.5 fL Normal 81-99 [facility] Comment on above: Performed By: #### L 506.1001, L501.9520, L500.4050, L100.0100, L500.4100 #### [facility] [address] [place], [address] Monocytes/100 WBC (Bld) 9.3 % Normal 0-10 [facility] Comment on above: Performed By: #### L 506.1001, L501.9520, L500.4050, L100.0100, L500.4100 #### [facility] [address] [place], [address] Neutrophils/100 WBC (Bld) 46.5 % Low 47-70 [facility] Comment on above: Performed By: #### L 506.1001, L501.9520, L500.4050, L100.0100, L500.4100 #### [facility] [address] [place], [address] Nucleated RBC (Bld) [#/Vol] 0 10*3/uL Normal 0-5 [facility] Comment on above: Performed By: #### L 506.1001, L501.9520, L500.4050, L100.0100, L500.4100 #### [facility] [address] [place], [address] Platelet mean volume (Bld) [Entitic vol] 12.0 fL Normal 6.2-12.0 [facility] Comment on above: Performed By: #### L 506.1001, L501.9520, L500.4050, L100.0100, L500.4100 #### [facility] [address] [place], [address] Platelets (Bld) [#/Vol] 284 10*3/uL Normal 150-450 [facility] Comment on above: Performed By: #### L 506.1001, L501.9520, L500.4050, L100.0100, L500.4100 #### [facility] [address] [place], [address] RBC (Bld) [#/Vol] 4.89 10*6/uL Normal 4.2-5.4 [facility] Comment on above: Performed By: #### L 506.1001, L501.9520, L500.4050, L100.0100, L500.4100 #### [facility] [address] [place], [address] RDW SD 43.8 fl Normal 35.1-43.9 [facility] Comment on above: Performed By: #### L 506.1001, L501.9520, L500.4050, L100.0100, L500.4100 #### [facility] [address] [place], [address] WBC (Bld) [#/Vol] 4.4 10*3/uL Normal 4.4-11.0 [facility] Comment on above: Performed By: #### L 506.1001, L501.9520, L500.4050, L100.0100, L500.4100 #### [facility] [address] [place], [address] Calculated very low density lipoprotein (VLDL) cholesterol measurementOrdered By: Bryant Peterson on 10-30-2024 Calculated very low density lipoprotein (VLDL) cholesterol measurement 36 mg/dL 5-40 [facility] Carbon dioxide, total [Moles /volume] in Central venous bloodOrdered By: Bryant Peterson on 10-30-2024 CO2 [Moles/Vol] 19.0 mmol/L Low 21.0-32.0 [facility] Chloride assayOrdered By: Venus tthejarad Peterson on 10-30-2024 Chloride [Moles/Vol] 110 mmol/L High 98-108 [facility] Comprehensive Metabolic Prof ilon 10-30-2024 Albumin [Mass/Vol] 4.4 g/dL Normal 3.5-5.0 [facility] Comment on above: Performed By: #### L 506.1001, L501.9520, L500.4050, L100.0100, L500.4100 #### [facility] [address] [place], [address] Albumin/Globulin [Mass ratio] 1.2 {ratio} Normal 0.9-2.4 [facility] Comment on above: Performed By: #### L 506.1001, L501.9520, L500.4050, L100.0100, L500.4100 #### [facility] [address] [place], [address] ALK PHOS 110 U/L High 35-104 [facility] Comment on above: Performed By: #### L 506.1001, L501.9520, L500.4050, L100.0100, L500.4100 #### [facility] [address] [place], [address] ALT [Catalytic activity/Vol] 36 U/L High <=34 [facility] Comment on above: Performed By: #### L 506.1001, L501.9520, L500.4050, L100.0100, L500.4100 #### [facility] [address] [place], [address] AST [Catalytic activity/Vol] 35 U/L High <=31 [facility] Comment on above: Performed By: #### L 506.1001, L501.9520, L500.4050, L100.0100, L500.4100 #### [facility] [address] [place], [address] Bilirubin [Mass/Vol] 1.07 mg/dL Normal 0.00-1.30 [facility] Comment on above: Performed By: #### L 506.1001, L501.9520, L500.4050, L100.0100, L500.4100 #### [facility] [address] [place], [address] BUN/CRE 19.7 RATIO Normal 10-20 [facility] Comment on above: Performed By: #### L 506.1001, L501.9520, L500.4050, L100.0100, L500.4100 #### [facility] [address] [place], [address] Calcium [Mass/Vol] 9.5 mg/dL Normal 7.6-11.0 [facility] Comment on above: Performed By: #### L 506.1001, L501.9520, L500.4050, L100.0100, L500.4100 #### [facility] [address] [place], [address] Chloride [Moles/Vol] 110 mmol/L High 98-108 [facility] Comment on above: Performed By: #### L 506.1001, L501.9520, L500.4050, L100.0100, L500.4100 #### [facility] [address] [place], [address] CO2 [Moles/Vol] 19.0 mmol/L Low 21.0-32.0 [facility] Comment on above: Performed By: #### L 506.1001, L501.9520, L500.4050, L100.0100, L500.4100 #### [facility] [address] [place], [address] Creatinine [Mass/Vol] 0.70 mg/dL Normal 0.70-1.20 [facility] Comment on above: Performed By: #### L 506.1001, L501.9520, L500.4050, L100.0100, L500.4100 #### [facility] [address] [place], [address] GAP 12 Normal 5-15 [facility] Comment on above: Performed By: #### L 506.1001, L501.9520, L500.4050, L100.0100, L500.4100 #### [facility] [address] [place], [address] GFR/1.73 sq M.predicted among non-blacks MDRD (S/P/Bld) [Vol rate/Area] 103 mL/min/{1.73_m2} Normal >60 [facility] Comment on above: Result Comment: mL/m in/1.73m2 CKD-EPI Creatinine Equation (2020) Performed By: #### L 506.1001, L501.9520, L500.4050, L100.0100, L500.4100 #### [facility] [address] [place], [address] Globulin (S) [Mass/Vol] 3.6 g/dL Normal 2.2-4.2 [facility] Comment on above: Performed By: #### L 506.1001, L501.9520, L500.4050, L100.0100, L500.4100 #### [facility] [address] [place], [address] Glucose [Mass/Vol] 119 mg/dL High 70-99 [facility] Comment on above: Performed By: #### L 506.1001, L501.9520, L500.4050, L100.0100, L500.4100 #### [facility] [address] [place], [address] Potassium [Moles/Vol] 4.0 mmol/L Normal 3.3-5.1 [facility] Comment on above: Performed By: #### L 506.1001, L501.9520, L500.4050, L100.0100, L500.4100 #### [facility] [address] [place], [address] Sodium [Moles/Vol] 141 mmol/L Normal 133-145 [facility] Comment on above: Performed By: #### L 506.1001, L501.9520, L500.4050, L100.0100, L500.4100 #### [facility] [address] [place], [address] T PROT 8.0 g/dL Normal 5.9-8.4 [facility] Comment on above: Performed By: #### L 506.1001, L501.9520, L500.4050, L100.0100, L500.4100 #### [facility] [address] [place], [address] Urea nitrogen [Mass/Vol] 14 mg/dL Normal 4-19 [facility] Comment on above: Performed By: #### L 506.1001, L501.9520, L500.4050, L100.0100, L500.4100 #### [facility] [address] [place], [address] Eosinophil percentageOrdered By: Bryant Peterson on 10-30-2024 Eosinophils/100 WBC (Bld) 8.0 % High 0-5 [facility] Erythrocyte distribution wid th ratioOrdered By: Bryant Peterson on 10-30-2024 Erythrocyte distribution width (RBC) [Ratio] 13.8 % 11.6-14.6 [facility] Erythrocyte distribution wid th standard deviationOrdered By: Bryant Peterson on 10-30-2024 Erythrocyte distribution width (RBC) [Ratio] 43.8 fl 35.1-43.9 [facility] Glomerular filtration rate ( GFR) estimation/1.73 sq m using serum, plasma, or whole bOrdered By: Bryant Peterson on 10-30-2024 GFR/1.73 sq M.predicted among non-blacks MDRD (S/P/Bld) [Vol rate/Area] 103 mL/min/{1.73_m2} >60 [facility] Comment on above: mL/min/1.73m2 CKD-EP I Creatinine Equation (2020) Hematocrit Auto (Bld) [Volum e fraction]Ordered By: Bryant Peterson on 10-30-2024 Hematocrit (Bld) [Volume fraction] 42.3 % 37-47 [facility] Hemoglobin measurementOrdere d By: Bryant Peterson on 10-30-2024 Hemoglobin (Bld) [Mass/Vol] 14.6 g/dL 12.0-15.0 [facility] Immature granulocytes/100 WB C Auto (Bld)Ordered By: Bryant Peterson on 10-30-2024 Immature granulocytes/100 WBC (Bld) 0.200 % 0.0-0.9 [facility] Comment on above: IG% - Immature Granu locytes (promyelocytes, myelocytes and metamyelocytes) > 1% indicates that a LEFT SHIFT is Present. Internal Medicine Office Vis itokoffi 10-30-2024 Internal Medicine Office Visit [facility] [address] [place] [address] [address] [place] [address] OFFICE VISIT Date of Service: 10/30/24 MR#: [id number] Acct: [id number] Name: JULIETA VALLE Rep #: [id number] : 1970 Provider: SHAWN Rice Age/Sex: 53/F Location: [facility] [place] Status: Signed Intake Vital Signs 10/21/24 10:20 10/30/24 07:41 Height 5 ft 10 in 5 ft 10 in Weight: 235 lb 2 oz 232 lb BMI 33.7 33.3 BP 148/98 H 128/84 H Blood Pressure Location Lt brachial Position Sitting Respiration 16 Pulse 88 Pulse Source Monitor Temp 97.1 F L Temp Source Temporal Pulse Oximetry (%) 96 Oxygen Delivery Method room air Intake Visit Reasons: ACUTE - MED REFILLS Taproom Attendant Required: No Is patient in pain?: No Allergies No Known Allergies Allergy (Verified 10/30/24 07:38) Medications ???Medication ???Instructions ???Recorded ???Confirmed ???Type famciclovir 500 mg tablet 500 mg PO DAILY PRN cold sores #90 09/15/23 10/30/24 Rx tabs progesterone micronized 100 mg 100 mg PO QHS #90 caps 09/02/24 Rx capsule (Prometrium) estradiol 0.1 mg/24 hr semiweekly 1 patch transdermal 2XW #8 ea 10/30/24 Rx transdermal patch (Vivelle-Dot) albuterol sulfate 90 mcg/actuation 2 puff inhalation Q6H PRN 10/30/24 Rx aerosol inhaler shortness of breath or wheezing #8.5 grams atorvastatin 20 mg tablet 20 mg PO DAILY #90 tabs 10/30/24 0 10/30/24 Rx benazepril 20 mg tablet 20 mg PO DAILY #90 tabs 10/30/24 0 10/30/24 Rx tirzepatide (weight loss) 2.5 2.5 mg (0.5 mL) subcut QWEEK #2 mL 10/31/24 10/31/24 Rx mg/0.5 mL subcutaneous pen injector (Zepbound) Nurse's Note: Pt states she wants to start back on zepbound, Has been diet and exercising and nothing is helping. Pt never took the zepbound when initially prescribed. Pt knows insurance typically denies this and is okay w/ paying out of pocket. Pt needs refills on everything. [facility] Medical History Menopausal hot flushes Vaginal candidiasis Fatigue Hyperlipidemia Obesity (BMI 30-39.9) Colon cancer screening Bilateral knee pain Hypertension Asthma Family History Father Diabetes Hypertension Mother Hypertension Social History (Updated 10/30/24 @ 07:45 by Sarah Fox MA) adopted: No Smoking Status: Former smoker quit date: 09/23/98 alcohol intake: current alcohol intake frequency: holidays/special occasions only substance use type: does not use what type of physical activity do you participate in: none seatbelt use: always do you feel safe at home: Yes additional social history: Single HPI HPI Details: JULIETA VALLE, is a 53 F who presents to the office today for follow-up on chronic conditions as she was told she needed an appointment before she can have refills. No changes in her BP. 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 She has been trying to do better at exercising She states that she feels like her diet is good. She recently starting making her own salad dressing to make it healthier She does consume caffeine via coffee. 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 ROS Const Constitutional: No body ache, chills, excessive sweating, fatigue, fever(s), frequent falls, headache(s), snoring, weakness, sleep problems or change in appetite Eyes Eyes: No blurry vision, change in vision, eye pain or Light sensitivity ENT ENT: No abnormal hearing, ear or mastoid pain, tinnitus, nasal congestion, headache(s), neck pain or sore throat Resp Respiratory: No cough, shortness of breath, snoring or wheezing Cardio Cardiology: No chest pain at rest, chest pain with exertion, excessive sweating, shortness of breath, dyspnea on exertion, lightheadedness, orthopnea or palpitations Gastro GI: No abdominal pain, change in bowel habits, constipation, cramping, diarrhea, nausea/dyspepsia or vomiting Genitourinary-Female : No burning urination, painful urination, urinary incontinence, urinary frequency, abnormal vaginal bleeding or pelvic pain Musc Musculoskeletal: No abnormal gait, joint pain, back pain, limited range of motion, neck pain or numbness Skin Skin: No dry skin, redness, lesions, itchy eyes, rash or wounds Neuro Neurology: No abnormal gait, abnormal hearing, weakness, frequent falls, headache(s), memory loss or numbness Psych Psychiatric: No a (more content not included)... Normal [facility] LDL calc ser/plasOrdered By: Bryant Peterson on 10-30-2024 Cholesterol in LDL [Mass/Vol] 132 mg/dL [facility] Comment on above: Tnkaryxdhi=751-228 m g/dL & Higher Jiwx=675 mg/dL or greater Laboratory - Chemistry and C hemistry - challengeOrdered By: Bryant Peterson on 10-30-2024 AST [Catalytic activity/Vol] 35 U/L High <32 [facility] Lipid Profileon 10-30-2024 CHOL:HDL 4.34 Normal [facility] Comment on above: Performed By: #### L 506.1001, L501.9520, L500.4050, L100.0100, L500.4100 #### [facility] [address] [place], [place], [id number] Cholesterol [Mass/Vol] 218 mg/dL High <=200 [facility] Comment on above: Result Comment: Chol esterol level, Desirable <200 mg/dL Borderline high cholesterol 200-239 mg/dL High cholesterol >=240 mg/dL Recommendations of the NCEP Adult Treatment Panel for the following risk-cutoff thresholds for the [place] population. Performed By: #### L 506.1001, L501.9520, L500.4050, L100.0100, L500.4100 #### [facility] [address] [place], [address] Cholesterol in HDL [Mass/Vol] 50 mg/dL Normal [facility] Comment on above: Result Comment: Ayanna onal Cholesterol Education Program (NCEP) guidelines: <40 mg/dL: Low HDL-cholesterol (major risk factor for CHD) >= 60 mg/dL: High HDL-cholesterol (negative risk factor for CHD) HDL-cholesterol is affected by a number of factors, e.g. smoking, exercise, hormones, sex and age. Performed By: #### L 506.1001, L501.9520, L500.4050, L100.0100, L500.4100 #### [facility] [address] [place], [address] Cholesterol in LDL [Mass/Vol] 132 mg/dL Normal [facility] Comment on above: Result Comment: Bord pjjijt=887-133 mg/dL Higher Baml=409 mg/dL or greater Performed By: #### L 506.1001, L501.9520, L500.4050, L100.0100, L500.4100 #### [facility] [address] [place], [address] Cholesterol in VLDL [Mass/Vol] 36 mg/dL Normal 5-40 [facility] Comment on above: Performed By: #### L 506.1001, L501.9520, L500.4050, L100.0100, L500.4100 #### [facility] [address] [place], [address] Triglyceride [Mass/Vol] 181 mg/dL Normal [facility] Comment on above: Result Comment: The drugs N-Acetylcysteine and Metamizole may falsely depress this assay. Normal range: <150 mg/dL Borderline High: 150-199 mg/dL High: 200-499 mg/dL Very High: >500 mg/dL Performed By: #### L 506.1001, L501.9520, L500.4050, L100.0100, L500.4100 #### [facility] [address] [place], [address] MCV (mean corpuscular volume ) determinationOrdered By: Bryant Peterson on 10-30-2024 MCV (RBC) [Entitic vol] 86.5 fL 81-99 [facility] Mean corpuscular hemoglobin (MCH) determinationOrdered By: Bryant Peterson on 10-30-2024 MCH (RBC) [Entitic mass] 29.9 pg 27.0-32.0 [facility] Mean corpuscular hemoglobin concentration (MCHC) determinationOrdered By: Bryant Peterson on 10-30-2024 MCHC (RBC) [Mass/Vol] 34.5 g/dL 32-36 [facility] Mean platelet volume determi nationOrdered By: Bryant Peterson on 10-30-2024 Platelet mean volume (Bld) [Entitic vol] 12.0 fL 6.2-12.0 [facility] Monocyte percentageOrdered B y: Bryant Peterson on 10-30-2024 Monocytes/100 WBC (Bld) 9.3 % 0-10 [facility] Neutrophil percentageOrdered By: Bryant Peterson on 10-30-2024 Neutrophils/100 WBC (Bld) 46.5 % Low 47-70 [facility] Nucleated red blood cell per centageOrdered By: Bryant Peterson on 10-30-2024 Nucleated RBC/100 WBC (Bld) [Ratio] 0 % 0-5 [facility] Platelet countOrdered By: Venus ttakhil Peterson on 10-30-2024 Platelets (Bld) [#/Vol] 284 10*3/uL 150-450 [facility] Potassium measurement (mass/ volume)Ordered By: Bryant Peterson on 10-30-2024 Potassium (Unsp spec) [Mass/Vol] 4.0 mmol/L 3.3-5.1 [facility] RBC Auto (Bld) [#/Vol]Ordere d By: Bryant Peterson on 10-30-2024 RBC (Bld) [#/Vol] 4.89 10*6/uL 4.2-5.4 [facility] Screening total cholesterol/ high density lipoprotein (HDL) cholesterol ratioOrdered By: Bryant Peterson on 10-30-2024 Cholesterol.total/Magnolia sterol in HDL [Mass ratio] 4.34 {ratio} [facility] Serum creatinine measurement (mass/volume)Ordered By: Bryant Peterson on 10-30-2024 Creatinine [Mass/Vol] 0.70 mg/dL 0.70-1.20 [facility] Serum globulin measurementOr dered By: Bryant Peterson on 10-30-2024 Globulin (S) [Mass/Vol] 3.6 g/dL 2.2-4.2 [facility] Serum glucose measurement (m ass/volume)Ordered By: Bryant Peterson on 10-30-2024 Glucose [Mass/Vol] 119 mg/dL High 70-99 [facility] Serum or plasma alanine null otransferase (ALT) measurementOrdered By: Bryant Peterson on 10-30-2024 ALT [Catalytic activity/Vol] 36 U/L High <35 [facility] Serum or plasma albumin kalyn urement (mass/volume)Ordered By: Bryant Peterson on 10-30-2024 Albumin [Mass/Vol] 4.4 g/dL 3.5-5.0 [facility] Serum or plasma albumin/glob ulin mass ratioOrdered By: Bryant Peterson on 10-30-2024 Albumin/Globulin [Mass ratio] 1.2 {ratio} 0.9-2.4 [facility] Serum or plasma alkaline natalie sphatase measurementOrdered By: Bryant Peterson on 10-30-2024 ALP [Catalytic activity/Vol] 110 U/L High 35-104 [facility] Serum or plasma calcium kalyn urement (mass/volume)Ordered By: Bryant Peterson on 10-30-2024 Calcium [Mass/Vol] 9.5 mg/dL 7.6-11.0 [facility] Serum or plasma cholesterol in HDL measurement (mass/volume)Ordered By: Bryant Peterson on 10-30-2024 Cholesterol in HDL [Mass/Vol] 50 mg/dL >40 [facility] Comment on above: National Cholesterol Education Program (NCEP) guidelines:<40 mg/dL: Low HDL-cholesterol (major risk factor for CHD)>= 60 mg/dL: High HDL-cholesterol (negative risk factor for CHD)HDL-cholesterol is affected by a number of factors, e.g. smoking, exercise, hormones, sex and age. Serum or plasma cholesterol measurement (mass/volume)Ordered By: Bryant Peterson on 10-30-2024 Cholesterol [Mass/Vol] 218 mg/dL High <201 [facility] Comment on above: Cholesterol level, D esirable <200 mg/dLBorderline high cholesterol 200-239 mg/dLHigh cholesterol >=240 mg/dLRecommendations of the NCEP Adult Treatment Panel for the following risk-cutoff thresholds for the [place] population. Serum or plasma urea nitroge n measurement (mass/volume)Ordered By: Bryant Peterson on 10-30-2024 Urea nitrogen [Mass/Vol] 14 mg/dL 4-19 [facility] Sodium levelOrdered By: Shola Peterson on 10-30-2024 Sodium [Moles/Vol] 141 mmol/L 133-145 [facility] TSH DL <= 0.005 mIU/L QnOrde red By: Bryant Peterson on 10-30-2024 TSH Qn 2.900 uIU/mL 0.300-4.200 [facility] Thyroid Stim Hormone (TSH)on 10-30-2024 TSH 2.900 uIU/mL Normal 0.300-4.200 [facility] Comment on above: Performed By: #### L 506.1001, L501.9520, L500.4050, L100.0100, L500.4100 #### [facility] [address] [place], [address] Total proteinOrdered By: Ralph Peterson on 10-30-2024 Protein [Mass/Vol] 8.0 g/dL 5.9-8.4 [facility] Triglycerides measurementOrd ered By: Bryant Peterson on 10-30-2024 Triglyceride [Mass/Vol] 181 mg/dL <199 [facility] Comment on above: The drugs N-Acetylcy steine and Metamizole may falsely depress this assay. Normal range: <150 mg/dLBorderline High: 150-199 mg/dLHigh: 200-499 mg/dLVery High: >500 mg/dL Vitamin D,25 Hydroxyon 10-30 Vitamin D 25-OH 20.7 ng/mL Low 30-100 [facility] Comment on above: Result Comment: Nissa min D Status Deficiency: <20 ng/mL (50nmol/L) Insufficiency: 20-30 ng/mL (50-75 nmol/L) Sufficiency: 30-100 ng/mL (75-250 nmol/L) Toxicity: >100 ng/mL (>250 nmol/L) Performed By: #### L 506.1001, L501.9520, L500.4050, L100.0100, L500.4100 #### [facility] [address] [place], [address] White blood cell (WBC) count Ordered By: Bryant Peterson on 10-30-2024 WBC (Bld) [#/Vol] 4.4 10*3/uL 4.4-11.0 [facility] Incident Engineer Office Visit Reporton 10-21-2024 Incident Engineer Office Visit Report [facility], [address] [place] [address] OFFICE VISIT Date of Service: 10/21/24 MR#: [id number] Acct: [id number] Name: JULIETA VALLE Rep #: [id number] : 1970 Provider: HERMINIA foss Age/Sex: 53/F [place] [facility] [place]: Signed Intake Vital Signs 08/06/24 10:40 10/21/24 10:20 Height 5 ft 10 in 5 ft 10 in Weight: 235 lb 2 oz BMI 33.7 BP 148/98 H Intake Visit Reasons: Med check *copay $40 Taproom Attendant Required: No Is patient in pain?: No Allergies No Known Allergies Allergy (Verified 10/21/24 10:25) Medications ???Medication ???Instructions ???Recorded ???Confirmed ???Type famciclovir 500 mg tablet 500 mg PO DAILY PRN cold sores #90 09/15/23 10/21/24 Rx tabs atorvastatin 20 mg tablet 20 mg PO DAILY #60 tabs 02/05/24 0 10/21/24 Rx albuterol sulfate 90 mcg/actuation 2 puff inhalation Q6H PRN 10/21/24 Rx aerosol inhaler shortness of breath or wheezing #8.5 grams benazepril 20 mg tablet 20 mg PO DAILY #90 tabs 03/01/24 0 10/21/24 Rx progesterone micronized 100 mg 100 mg PO QHS #90 caps 09/02/24 Rx capsule (Prometrium) estradiol 0.1 mg/24 hr semiweekly 1 patch transdermal 2XW #8 ea 10/21/24 Rx transdermal patch (Vivelle-Dot) metronidazole 500 mg tablet 500 mg PO BID 7 days #14 tabs 09/2510/21/24 Rx Is last menstrual period known: Yes Last Menstrual Period: 09/30/24 Patient : No : No Nurse's Note: pt concerned about vaginal odor PFSH Medical History Menopausal hot flushes Vaginal candidiasis Fatigue Hyperlipidemia Obesity (BMI 30-39.9) Colon cancer screening Bilateral knee pain Hypertension Asthma Family History Father Diabetes Hypertension Mother Hypertension Social History Smoking Status: Former smoker quit date: 09/23/98 alcohol intake: current alcohol intake frequency: holidays/special occasions only substance use type: does not use what type of physical activity do you participate in: none seatbelt use: always do you feel safe at home: Yes additional social history: Single HPI Med check *copay $40 Details: JULIETA VALLE is a 53 year old who presents for follow up start of estradiol patch and prometrium. Note elevated BP initially, states ran out of BP med but is picking up today. Has been off it for 2 days. Denies headache, vision changes. Repeat BP improved. She is still having hot flashes, did have light spotting in July and again 3 weeks ago. Did not need to wear a pad. Female Reproductive History Last Menstrual Period: 09/30/24 History 3 Elective abortions Hx Para 2 Spontaneous abortions Hx # Term Pregnancies Ectopic pregnancies Hx # Pregnancies Multiple births # of living children 2 ROS Const Constitutional: Reports system reviewed and no additional complaints, except as documented Eyes Eyes: Reports system reviewed and no additional complaints, except as documented GI GI: Denies abdominal pain or change in bowel habits : Reports as per HPI Exam Const General: cooperative and no acute distress Orientation: oriented x3 HENMT Head: normal to inspection and normocephalic Eyes General: appearance normal, both eyes and all related structures Neck Neck: normal visual inspection Resp Effort Inspection: normal respiratory effort Neuro Cognition: normal cognition Speech: speech normal Psych Appearance: grossly normal Mood: congruent mood Affect: normal affect Speech and Movement: speech and movement normal Attitude: cooperative Judgment: judgment good Coding Level of Care Code Off vis,est,level 3 Diagnoses Menopausal hot flushes N95.1 Climacteric N95.1 Postmenopausal HRT (hormone replacement therapy) Z79.890 Primary hypertension I10 Hypertension type: primary hypertension Assessment and Plan Assessment and Plan (1) Menopausal hot flushes: Status: Acute (2) Climacteric: Status: Acute (3) Postmenopausal HRT (hormone replacement therapy): Status: Acute (4) Hypertension: Status: Chronic Qualifiers: Hypertension type: primary hypertension Qualified Code(s): I10 - Essential (primary) hypertension Medications: New estradiol (Vivelle-Dot) apply 1 patch for 3 days alternating with 1 patch for 4 days each week 1 patch transdermal 2XW 8 ea 6RF metronidazole 500 mg PO BID 7 days 14 tabs 0RF estradiol (Vivelle-Dot) apply 1 patch for 3 days alternating with 1 patch for 4 days each week 1 patch transdermal 2XW 8 ea 0RF Discontinued estradiol (Vivelle-Dot) apply 1 patch for 3 days alte (more content not included)... Normal [facility] PAP IG HPV APTIMA 16/18,45on 08-12-2024 ADEQ Comment Normal . [facility] Comment on above: Order Comment: Speci men Comment: [id number] Specimen Comment: Source.............Cervix Specimen Comment: No. of containers..01 ThinPrep Vial Result Comment: Sati sfactory for evaluation. Endocervical and/or squamous metaplastic cells (endocervical component) are present. Performed By: #### M 100.3200, L7400.0280, #### [facility] [address] [place], [place], [id number] COMM . Normal . [facility] Comment on above: Order Comment: Speci men Comment: [id number] Specimen Comment: Source.............Cervix Specimen Comment: No. of containers..01 ThinPrep Vial Performed By: #### M 100.3200, L7400.0280, M1 #### [facility] [address] [place], [place], [address] COMMENT Comment Normal . [facility] Comment on above: Order Comment: Speci men Comment: [id number] Specimen Comment: Source.............Cervix Specimen Comment: No. of containers..01 ThinPrep Vial Result Comment: This liquid based ThinPrep(R) pap test was screened with the use of an image guided system. Performed By: #### M 100.3200, L7400.0280, M1 #### [facility] [address] [place], [address] DIAG Comment Normal . [facility] Comment on above: Order Comment: Speci men Comment: [id number] Specimen Comment: Source.............Cervix Specimen Comment: No. of containers..01 ThinPrep Vial Result Comment: NEGA TIVE FOR INTRAEPITHELIAL LESION OR MALIGNANCY. THIS SPECIMEN WAS RESCREENED PART OF OUR [facility] PROGRAM. Performed By: #### M 100.3200, L7400.0280, #### [facility] [address] [place], [address] HPV APTIMA, HR Negative Normal Negative [facility] Comment on above: Order Comment: Speci men Comment: [id number] Specimen Comment: Source.............Cervix Specimen Comment: No. of containers..01 ThinPrep Vial Result Comment: This nucleic acid amplification test detects fourteen high- risk HPV types (16,18,31,33,35,39,45,51,52,56,58,59,66,68) without differentiation. Performed By: #### M 100.3200, L7400.0280, #### [facility] [address] [place], [address] HPV Arabella Rfx Comment Normal . [facility] Comment on above: Order Comment: Speci men Comment: [id number] Specimen Comment: Source.............Cervix Specimen Comment: No. of containers..01 ThinPrep Vial Result Comment: Crit ersahil not met, HPV Genotype not performed. Performed at: [facility] [address] [address] [place], [place] [id number] Mechanical Maintenance Technician: Silas Alves MD, Phone: [phone] Performed at: - [address] [id number] Mechanical Maintenance Technician: Betsy Mcgraw MD, Phone: [phone] Performed at: = - [facility] [id number] Mechanical Maintenance Technician: Betsy Mcgraw MD, Phone: [phone] Performed By: #### M 100.3200, L7400.0280, M1 #### [facility] [address] [place], [place], [id number] PAPSMR Comment Normal . [facility] Comment on above: Order Comment: Speci men Comment: [id number] Specimen Comment: Source.............Cervix Specimen Comment: No. of containers..01 ThinPrep Vial Result Comment: The Pap smear is a screening test designed to aid in the detection of premalignant and malignant conditions of the uterine cervix. It is not a diagnostic procedure and should not be used as the sole means of detecting cervical cancer. Both false-positive and false-negative reports do occur. Performed By: #### M 100.3200, L7400.0280, M1.1999 #### [facility] [address] [place], [place], [address] PERFORM Comment Normal . [facility] Comment on above: Order Comment: Speci men Comment: [id number] Specimen Comment: Source.............Cervix Specimen Comment: No. of containers..01 ThinPrep Vial Result Comment: Tim Lira, Design Engineering Technician (ASCP) Performed By: #### M 100.3200, L7400.0280, M100.1999 #### [facility] [address] [place], [address] QC REV Comment Normal . [facility] Comment on above: Order Comment: Speci men Comment: [id number] Specimen Comment: Source.............Cervix Specimen Comment: No. of containers..01 ThinPrep Vial Result Comment: Lauren Collazo Design Engineering Technician (ASCP) Performed By: #### M 100.3200, L7400.0280, M100.1999 #### [facility] [address] [place], [address] Genital Culture Comprehensiv justin 08-09-2024 VAC Reason for Exam: vaginal odor No yeast, Neisseria or beta-hemolytic Streptococcus isolated. G. vaginalis (Presumptive) Amount Growth 3+ Normal [facility] Comment on above: Performed By: #### M 100.3200, L7400.0280, M100.1999 #### [facility] [address] [place], [address] Gram Stainon 08-07-2024 GS Reason for Exam: vaginal odor Gram Stain 3+ Gram positive rods 2+ Gram variable helen 1+ Epithelial cells Normal [facility] Comment on above: Performed By: #### M 100.3200, L7400.0280, M100.1999 #### [facility] [address] [place], [address] Cervical or vaginal specimen microscopic examination by liquid based cytology (reportOrdered By: Essie Snow on 08-06-2024 Cytology report Cyto stain.thin prep Doc (Cvx/Vag) Comment . [facility] Comment on above: Criteria not met, HP V Genotype not performed.Performed at: [facility] [address] [place], [place] [id number] Director: Silas Alves MD, Phone: [phone] at: [facility] [address] [id number] Director: Betsy Mcgraw MD, Phone: [phone] at: =G - [facility] [address] [place] [id number] Director: Betsy Mcgraw MD, Phone: [phone] Cervical or vagninal specime n microscopic examination by cytology stain (reported asOrdered By: Essie Snow on 08-06-2024 Cytology report Cyto stain Doc (Cvx/Vag) Comment . [facility] Comment on above: The Pap smear is a s creening test designed to aid in thedetection of premalignant and malignant conditions of theuterine cervix. It is not a diagnostic procedure andshould not be used as the sole means of detecting cervicalcancer. Both false-positive and false-negative reports dooccur. Detection in cervical specim en of any of human papilloma virus (HPV) 16, 18, 31, 33,Ordered By: Essie Snow on 08-06-2024 HPV 16+18+31+33+35+39+45+51 +52+56+58+59+66+68 DNA Probe+sig amp Ql (Cvx) Negative Negative [facility] Comment on above: This nucleic acid am plification test detects fourteen high-risk HPV types (16,18,31,33,35,39,45,51,52,56,58,59,66,68)without differentiation. Estradiolon 08-06-2024 ESTRADIOL 12.8 pg/mL Normal [facility] Comment on above: Result Comment: NORM AL REFERENCE RANGES FEMALE FOLLICULAR 21.4 - 164.8 pg/mL MID-CYCLE PEAK 49.9 - 367.2 pg/mL LUTEAL 40.2 - 259.0 pg/mL POST-MENOPAUSAL ON MHT <11.0 - 462.1 pg/mL NOT ON MHT <11.0 - 58.3 pg/mL MALE <11.0 - 52.5 pg/mL NOTE: [facility] HAS CONFIRMED THE DRUG FULVETRANT (FASLODEX) MAY CAUSE FALSELY ELEVATED ESTRADIOL RESULTS WHEN USING THIS TEST METHOD. IF PATIENT IS TAKING FULVESTRANT AN ALTERNATIVE METHOD SHOULD BE USED TO DETERMINE ESTRADIOL CONCENTRATION. Performed By: #### L 3100.5125, L3300.1750 ####[facility] [address] [place], [place], [id number] Follicle Stimulating Hormone on 08-06-2024 FSH 48.0 mIU/mL Normal [facility] Comment on above: Result Comment: NORMAL REFERENCE RANGES FEMALE FOLLICULAR 2.3 - 12.6 mIU/mL MID-CYCLE PEAK 5.2 - 17.5 mIU/mL LUTEAL 1.7 - 12.9 mIU/mL POST-MENOPAUSAL ON MHT 5.9 - 72.8 mIU/mL NOT ON MHT 12.7 - 132.2 mlU/mL MALE 0.7 - 10.8 mIU/mL Performed By: #### L 3100.5125, L3300.1750 ####[facility] [id number] [place], [place], [id number] Genital cultureOrdered By: Nicole Snow on 08-06-2024 Source specific culture G. vaginalis (Presumptive) Abnormal [facility] Gram stainOrdered By: Essie Snow on 08-06-2024 Microscopic observation Gram stain Nom (Unsp spec) [facility] Laboratory - CytologyOrdered By: Essie Snow on 08-06-2024 Laser Specialist Cyto stain Nom (Cvx/Vag) [ID] Comment . [facility] Comment on above: Atif Varner totechnologist ([facility]) Laboratory - Miscellaneous t estsOrdered By: Essie Snow on 08-06-2024 Service comment (Unsp spec) [Interp] . . [facility] No Panel InformationOrdered By: Essie Snow on 08-06-2024 Pap Smear QC Review Comment . [facility] Comment on above: Jose Antonio Clay otechnologist ([facility] Pap Smear Specimen Adequacy Comment . [facility] Comment on above: Satisfactory for diane luation. Endocervical and/or squamous metaplasticcells (endocervical component) are present. POC Bacterial Vaginitis (Rapid) Positive [facility] Incident Engineer Office Visit Reporton 08-06-2024 Incident Engineer Office Visit Report [facility] [address], [address] [place] [address] OFFICE VISIT Date of Service: 08/06/24 MR#: [id number] Acct: [id number] Name: JULIETA VALLE Rep #: [id number] : 1970 Provider: HERMINIA foss Age/Sex: 53/F [place] [facility] [place]: Signed Intake Vital Signs 02/16/24 14:10 08/06/24 10:28 08/06/24 10:40 Height 5 ft 10 in 5 ft 10 in 5 ft 10 in Weight: 226 lb 239 lb 6 oz BMI 32.4 34.3 BP 162/96 H 134/82 H Blood Pressure Location Lt brachial Position Sitting Respiration 14 Pulse 101 H Pulse Source Monitor Temp 96.0 F L Pulse Oximetry (%) 96 Oxygen Delivery Method room air Intake Visit Reasons: Annual ([employer]) Chief Complaint: Annual Taproom Attendant Required: No Is patient in pain?: No Allergies No Known Allergies Allergy (Verified 08/06/24 10:46) Medications ???Medication ???Instructions ???Recorded ???Confirmed ???Type famciclovir 500 mg tablet 500 mg PO DAILY PRN cold sores #90 09/15/23 08/06/24 Rx tabs atorvastatin 20 mg tablet 20 mg PO DAILY #60 tabs 02/05/24 0 08/06/24 Rx albuterol sulfate 90 mcg/actuation 2 puff inhalation Q6H PRN 08/06/24 Rx aerosol inhaler shortness of breath or wheezing #8.5 grams benazepril 20 mg tablet 20 mg PO DAILY #90 tabs 03/01/24 0 08/06/24 Rx Is last menstrual period known: No Post menopausal: No Patient : No : No Nurse's Note: No menses since December of 2023. [facility] Medical History (Updated 08/06/24 @ 11:38 by Essie Snow NP, HERMINIA) Menopausal hot flushes Vaginal candidiasis Fatigue Hyperlipidemia Obesity (BMI 30-39.9) Colon cancer screening Bilateral knee pain Hypertension Asthma Family History Father Diabetes Hypertension Mother Hypertension Social History (Updated 08/06/24 @ 10:39 by Sasha Bunch) Smoking Status: Former smoker quit date: 09/23/98 alcohol intake: current alcohol intake frequency: holidays/special occasions only substance use type: does not use what type of physical activity do you participate in: none seatbelt use: always do you feel safe at home: Yes additional social history: Single History 3 Elective abortions Hx Para 2 Spontaneous abortions Hx # Term Pregnancies Ectopic pregnancies Hx # Pregnancies Multiple births # of living children 2 HPI Annual ([employer]) Details: JULIETA VALLE is a 53 year old who presents for new patient annual exam. No menses since December 2023. Significant hot flashes, brain fog, sleep disruption. Sexually active. Recent STD evaluation at her employee health. Is noting vaginal odor. Last PAP: at least 4 yr History of abnormal PAP: no Last mammogram: 2022 History of abnormal mammogram: no Colon cancer screening: none Other preventative health care screenings: Malorie Female Reproductive History Questions: metorrhagia: No, sexually active: Yes, dyspareunia: No and PCB: No Menopausal Symptoms: Yes hot flashes, Yes night sweats and Yes sleep problems Menopausal Treatment: No HRT, No Vaginal Estrogen, No Osphena, No OTC treatments and No prescription non-hormonal treatment ROS Const Constitutional: Reports as per HPI and night sweats Cardio Card: Denies chest pain Resp Resp: Denies cough or dyspnea on exertion GI GI: Denies abdominal pain, bloating, change in stool character, constipation or vomiting : Reports hot flashes Exam Const General: cooperative, healthy appearing, no acute distress and well developed Orientation: alert, oriented to person and oriented to place [facility] Head: normal to inspection Neck Neck: normal visual inspection Thyroid: thyroid normal Lymphatic: no lymphadenopathy noted Chest Breast inspection: normal inspection of the breasts and normal inspection of the axillae Breast palpation: normal palpation of the breasts, normal palpation of the axillae and no axillary lymphadenopathy Resp Effort Inspection: normal respiratory effort GI Palpation: soft, no masses and nontender Rectal Exam: deferred External Female Exam: normal external appearance and normal appearance of the urethra Urethra: normal appearance of the urethra and normal palpation Speculum Exam - Vagina: normal appearance of the vagina and normal vaginal discharge Speculum Exam - Cervix: normal appearance of the cervix Bimanual Exam- Vagina Uterus: normal bimanual exam, uterine size normal, uterine shape normal and non-tender Bimanual Exam- Adnexa, other: normal adnexae, no masses, normal and non-tender Pelvic Support: normal Neuro General: patient alert and patient oriented x3 Psych Affect: normal affect Coding Level of Care Code Off vis,new,prev 40-64yrs Diagnoses Enc (more content not included)... Normal [facility] Absolute lymphocyte countOrd ered By: Dr. Espana on 12-12-2022 Lymphocytes Auto (Unsp spec) [#/Vol] 1.38 10*3/uL 0.83-4.51 [facility] Basophil percentageOrdered B y: Dr. Espana on 12-12-2022 Basophils/100 WBC (Bld) 1.8 % 0-1 [facility] Bilirubin [Mass/Vol] 0.90 mg/dL 0.20-1.00 [facility] Comment on above: For patients on eltr ombopag therapy, use of Dimension [place] TBIL is not recommended. Chloride [Moles/Vol] 113 mmol/L 98-107 [facility] Cholesterol [Mass/Vol] 176 mg/dL <200 [facility] Comment on above: <200 mg/dL Desirable 200-240 mg/dL Borderline >240 mg/dL High Risk Eosinophils/100 WBC (Bld) 8.1 % 0-5 [facility] Glucose [Mass/Vol] 103 mg/dL 74-106 [facility] Comment on above: Fasting Glucose resu lt from 100 to 125 mg/dL suggests IMPAIRED HOMEOSTASIS per A.D.A. criteria. Neutrophils (Bld) [#/Vol] 1.6 10*3/uL 2.0-7.7 [facility] Neutrophils/100 WBC (Bld) 42.1 % 47-70 [facility] Potassium [Moles/Vol] 4.1 mmol/L 3.5-5.1 [facility] Protein [Mass/Vol] 8.0 g/dL 6.4-8.2 [facility] Sodium [Moles/Vol] 141 mmol/L 136-145 [facility] Triglyceride [Mass/Vol] 85 mg/dL <199 [facility] Comment on above: The drugs N-Acetylcy steine and Metamizole may falsely depress this assay.Serum Triglycerides Reference Interval Normal <150 mg/dL Borderline high 150 - 199 mg/dL High 200 - 499 mg/dL Very High > or = 500 mg/dL WBC (Bld) [#/Vol] 3.8 10*3/uL 4.4-11.0 [facility] Blood erythrocytes count (nu mber/volume)Ordered By: Dr. Espana on 12-12-2022 RBC (Bld) [#/Vol] 4.49 10*6/uL 4.2-5.4 [facility] Blood hemoglobin measurement (mass/volume)Ordered By: Dr. Espana on 12-12-2022 Hemoglobin (Bld) [Mass/Vol] 13.1 g/dL 12.0-15.0 [facility] Blood lymphocytes/100 leukoc ytesOrdered By: Dr. Espana on 12-12-2022 Lymphocytes/100 WBC (Bld) 36.2 % 19-41 [facility] Blood monocytes/100 leukocyt esOrdered By: Dr. Espana on 12-12-2022 Monocytes/100 WBC (Bld) 11.8 % 0-10 [facility] Blood platelet mean volumeOr dered By: Dr. Espana on 12-12-2022 Platelet mean volume (Bld) [Entitic vol] 11.5 fL 6.2-12.0 [facility] Determination of erythrocyte mean corpuscular volume (MCV)Ordered By: Dr. Espana on 12-12-2022 MCV (RBC) [Entitic vol] 88.2 fL 81-99 [facility] Hematocrit Auto (Bld) [Volum e fraction]Ordered By: Dr. Espana on 12-12-2022 Hematocrit (Bld) [Volume fraction] 39.6 % 37-47 [facility] Laboratory - Chemistry and C hemistry - challengeOrdered By: Dr. Espana on 12-12-2022 ALP [Catalytic activity/Vol] 122 U/L 45-117 [facility] ALT [Catalytic activity/Vol] 37 U/L 13-56 [facility] CO2 [Moles/Vol] 23.0 mmol/L 21.0-32.0 [facility] Globulin (S) [Mass/Vol] 4.2 g/dL 2.2-4.2 [facility] Urea nitrogen/Creatinine [Mass ratio] 15.6 mg/mg 10-20 [facility] Laboratory - Hematology and Cell countsOrdered By: Dr. Espana on 12-12-2022 Erythrocyte distribution width (RBC) [Entitic vol] 46.0 fL 35.1-43.9 [facility] Erythrocyte distribution width (RBC) [Ratio] 14.3 % 11.6-14.6 [facility] Immature granulocytes/100 WBC (Bld) 0.000 % 0.0-0.9 [facility] Comment on above: IG% - Immature Granu locytes (promyelocytes, myelocytes and metamyelocytes) > 1% indicates that a LEFT SHIFT is Present. MCH (RBC) [Entitic mass] 29.2 pg 27.0-32.0 [facility] Nucleated RBC/100 WBC (Bld) [Ratio] 0 % 0-5 [facility] MCHC Auto (RBC) [Mass/Vol]Or dered By: Dr. Espana on 12-12-2022 MCHC (RBC) [Mass/Vol] 33.1 g/dL 32-36 [facility] No Panel InformationOrdered By: Dr. Espana on 12-12-2022 Estimated GFR (MDRD) Amer 101 mL/min >60 [facility] Comment on above: GFR Calc Estimated GFR (MDRD) Non-Af Amer 84 mL/min >60 [facility] Comment on above: Non- GFR Calc Platelets bldOrdered By: Dr. Espana on 12-12-2022 Platelets (Bld) [#/Vol] 375 10*3/uL 150-450 [facility] Serum or plasma albumin kalyn urement (mass/volume)Ordered By: Dr. Espana on 12-12-2022 Albumin [Mass/Vol] 3.8 g/dL 3.2-5.0 [facility] Serum or plasma albumin/glob ulin mass ratioOrdered By: Dr. Espana on 12-12-2022 Albumin/Globulin [Mass ratio] 0.9 {ratio} 0.9-2.4 [facility] Serum or plasma calcium kalyn urement (mass/volume)Ordered By: Dr. Espana on 12-12-2022 Calcium [Mass/Vol] 8.9 mg/dL 8.5-10.1 [facility] Serum or plasma cholesterol in HDL measurement (mass/volume)Ordered By: Dr. Espana on 12-12-2022 Cholesterol in HDL [Mass/Vol] 62 mg/dL >40 [facility] Comment on above: The drugs N-Acetylcy steine and Metamizole may falsely depress this assay. Reference Range HDL <40 mg/dL Low HDL Cholesterol HDL >or= 60 mg/dL High HDL Cholesterol Serum or plasma cholesterol in VLDL measurement (mass/volume)Ordered By: Dr. Espana on 12-12-2022 Cholesterol in VLDL [Mass/Vol] 17 mg/dL 5-40 [facility] Serum or plasma creatinine m easurement (mass/volume)Ordered By: Dr. Espana on 12-12-2022 Creatinine [Mass/Vol] 0.77 mg/dL 0.55-1.02 [facility] Comment on above: The validity of the calculated GFR & GFRAA in patients over 70 years has not been determined. Clinical correlation is essential. Serum or plasma low density lipoprotein (LDL) cholesterol measurement (mass/volume)Ordered By: Dr. Espana on 12-12-2022 Cholesterol in LDL [Mass/Vol] 97 mg/dL 0-130 [facility] Serum or plasma urea nitroge n measurement (mass/volume)Ordered By: Dr. Espana on 12-12-2022 Urea nitrogen [Mass/Vol] 12 mg/dL 7-18 [facility] Thin prep Papanicolaou smear with manual screeningOrdered By: Dr. Espana on 12-12-2022 Thin prep Papanicolaou smear with manual screening 27 U/L 15-37 [facility] Thin prep Papanicolaou smear with manual screening 5 5-15 [facility] Basophil percentageOrdered B y: Dr. Espana on 09-09-2022 Bilirubin [Mass/Vol] 0.70 mg/dL 0.20-1.00 [facility] Comment on above: For patients on eltr ombopag therapy, use of Dimension [place] TBIL is not recommended. Chloride [Moles/Vol] 112 mmol/L 98-107 [facility] Cholesterol [Mass/Vol] 296 mg/dL <200 [facility] Comment on above: <200 mg/dL Desirable 200-240 mg/dL Borderline >240 mg/dL High Risk Glucose [Mass/Vol] 121 mg/dL 74-106 [facility] Comment on above: Fasting Glucose resu lt from 100 to 125 mg/dL suggests IMPAIRED HOMEOSTASIS per A.D.A. criteria. Potassium [Moles/Vol] 4.1 mmol/L 3.5-5.1 [facility] Protein [Mass/Vol] 8.9 g/dL 6.4-8.2 [facility] Sodium [Moles/Vol] 141 mmol/L 136-145 [facility] Triglyceride [Mass/Vol] 150 mg/dL <199 [facility] Comment on above: The drugs N-Acetylcy steine and Metamizole may falsely depress this assay.Serum Triglycerides Reference Interval Normal <150 mg/dL Borderline high 150 - 199 mg/dL High 200 - 499 mg/dL Very High > or = 500 mg/dL Laboratory - Chemistry and C hemistry - challengeOrdered By: Dr. Espana on 09-09-2022 ALP [Catalytic activity/Vol] 106 U/L 45-117 [facility] ALT [Catalytic activity/Vol] 31 U/L 13-56 [facility] CO2 [Moles/Vol] 23.0 mmol/L 21.0-32.0 [facility] Globulin (S) [Mass/Vol] 4.6 g/dL 2.2-4.2 [facility] Urea nitrogen/Creatinine [Mass ratio] 18.3 mg/mg 10-20 [facility] No Panel InformationOrdered By: Dr. Espana on 09-09-2022 Estimated GFR (MDRD) Amer 94 mL/min >60 [facility] Comment on above: GFR Calc Estimated GFR (MDRD) Non-Af Amer 78 mL/min >60 [facility] Comment on above: Non- GFR Calc Serum or plasma albumin kalyn urement (mass/volume)Ordered By: Dr. Espana on 09-09-2022 Albumin [Mass/Vol] 4.3 g/dL 3.2-5.0 [facility] Serum or plasma albumin/glob ulin mass ratioOrdered By: Dr. Espana on 09-09-2022 Albumin/Globulin [Mass ratio] 0.9 {ratio} 0.9-2.4 [facility] Serum or plasma calcium kalyn urement (mass/volume)Ordered By: Dr. Espana on 09-09-2022 Calcium [Mass/Vol] 9.4 mg/dL 8.5-10.1 [facility] Serum or plasma cholesterol in HDL measurement (mass/volume)Ordered By: Dr. Espana on 09-09-2022 Cholesterol in HDL [Mass/Vol] 63 mg/dL >40 [facility] Comment on above: The drugs N-Acetylcy steine and Metamizole may falsely depress this assay. Reference Range HDL <40 mg/dL Low HDL Cholesterol HDL >or= 60 mg/dL High HDL Cholesterol Serum or plasma cholesterol in VLDL measurement (mass/volume)Ordered By: Dr. Espana on 09-09-2022 Cholesterol in VLDL [Mass/Vol] 30 mg/dL 5-40 [facility] Serum or plasma creatinine m easurement (mass/volume)Ordered By: Dr. Espana on 09-09-2022 Creatinine [Mass/Vol] 0.82 mg/dL 0.55-1.02 [facility] Comment on above: The validity of the calculated GFR & GFRAA in patients over 70 years has not been determined. Clinical correlation is essential. Serum or plasma low density lipoprotein (LDL) cholesterol measurement (mass/volume)Ordered By: Dr. Espana on 09-09-2022 Cholesterol in LDL [Mass/Vol] 203 mg/dL 0-130 [facility] Serum or plasma urea nitroge n measurement (mass/volume)Ordered By: Dr. Espana on 09-09-2022 Urea nitrogen [Mass/Vol] 15 mg/dL 7-18 [facility] Thin prep Papanicolaou smear with manual screeningOrdered By: Dr. Espana on 09-09-2022 Thin prep Papanicolaou smear with manual screening 30 U/L 15-37 [facility] Thin prep Papanicolaou smear with manual screening 6 5-15 [facility] PROGRESSon 04-01-2020 PROGRESS HNO ID: [id number] Author: Jenelle Castro (Rt) Service: Radiology Author Type: [employer] Operator Type: Progress Notes Filed: 04/01/2020 4:18 PM Note Text: Radiology Service Progress Note PATIENT NAME: Julieta Valle DATE OF SERVICE: April 01, 2020 TIME: 4:18 PM PATIENT IDENTITY VERIFICATION COMPLETED USING TWO (2) IDENTIFIERS: Name and Date of confirmed by patient verbally. FALL SCREENING: Has the patient had 2 falls in the last year or 1 fall with injury or currently using an Ambulatory Assistive Device (Walker, Cane, Wheelchair, Crutches, etc.)? No PATIENT GENDER DATA: Female. status: : No status: NO. PATIENT RELEVANT IMPLANT DATA REVIEWED: Not Applicable RADIOLOGY DEPARTMENT: Ultrasound PERIPHERAL IV DATA: Not applicable SIGNED BY: Nico Langley April 01, 2020 4:18 PM [facility] US THYROID/PARATHYROIDon US THYROID/PARATHYROID * * *Final Report * * * DATE OF EXAM: Apr 01 2020 4:18PM U 1048 - US THYROID/PARATHYROID / PROCEDURE REASON: Enlarged thyroid * * * * Physician Interpretation * * * * RESULT: EXAMINATION: THYROID ULTRASOUND CLINICAL HISTORY: Enlarged thyroid TECHNIQUE: Sonography and Doppler imaging of the thyroid was performed. Images were obtained and stored in a permanent archive. MQ: UST_1 COMPARISON: None. RESULT: Right Lobe: 5.8 x 2.6 x 2.2 cm; mildly heterogeneous echogenicity, expected vascular flow. Left Lobe: 5.8 x 2.0 x 2.5 cm; mildly heterogeneous echogenicity, expected vascular flow. Isthmus: 0.6 cm The most suspicious thyroid nodule(s) (up to four) as below: Nodules: None IMPRESSION: Unremarkable sonographic appearance of the thyroid. No suspicious thyroid lesion or nodule. Transcribed Using Voice Recognition Transcribe Date/Time: Apr 01 2020 4:32P Dictated by: IAM CORTES DO This examination was interpreted and the report reviewed and electronically signed by: IAM CORTES DO on Apr 01 2020 4:36PM EST [id number] CN [facility] Vital Signs Date Time Vital Sign Value Performing Clinician Leonardo lee 02-17-2025 08:59-0400 Body height 177.[address] Kenzie Espana MD Work Phone: [facility] 02-17-2025 08:59-0400 Body mass index (BMI) [Ratio] 33.8 kg/m2 Dr. Kenzie Espana MD Work Phone: [facility] 02-17-2025 08:59-0400 Body temperature 97.4 [degF] Dr. Kenzie Espana MD Work Phone: [facility] 02-17-2025 08:59-0400 Body weight 107.[address] Kenzie Espana MD Work Phone: [facility] 02-17-2025 08:59-0400 Diastolic blood pressure 80 mm[Hg] Dr. Kenzie Espana MD Work Phone: [facility] 02-17-2025 08:59-0400 Heart rate 98 /min Dr. Kenzie Espana MD Work Phone: [facility] 02-17-2025 08:59-0400 Respiratory rate 18 /min Dr. Kenzie Espana MD Work Phone: [facility] 02-17-2025 08:59-0400 SaO2% (BldA) [Mass fraction] 99 % Dr. Kenzie Espana MD Work Phone: [facility] 02-17-2025 08:59-0400 Systolic blood pressure 118 mm[Hg] Dr. Kenzie Espana MD Work Phone: [facility] 01-20-2025 07:55-0400 Body height 179.1 cm Rosalind Almaguer MD Work Phone: [facility] 01-20-2025 07:55-0400 Body mass index (BMI) [Ratio] 33.67 kg/m2 Rosalind Almaguer MD Work Phone: [facility] 01-20-2025 07:55-0400 Body weight 107.96 kg Rosalind Almaguer MD Work Phone: [facility] 01-20-2025 07:55-0400 Diastolic blood pressure 86 mm[Hg] Rosalind Almaguer MD Work Phone: [facility] 01-20-2025 07:55-0400 Heart rate 63 /min Rosalind Almaguer MD Work Phone: [facility] 01-20-2025 07:55-0400 Respiratory rate 14 /min Rosalind Almaguer MD Work Phone: [facility] 01-20-2025 07:55-0400 SaO2% (BldA) [Mass fraction] 96 % Rosalind Almaguer MD Work Phone: [facility] 01-20-2025 07:55-0400 Systolic blood pressure 134 mm[Hg] Rosalind Almaguer MD Work Phone: [facility] 11-26-2024 15:23-0400 Diastolic blood pressure 94 mm[Hg] Dr. Kenzie Espana MD Work Phone: [facility] 11-26-2024 15:23-0400 Systolic blood pressure 152 mm[Hg] Dr. Kenzie Espana MD Work Phone: [facility] 11-13-2024 16:13-0400 Body height 177.[address] Kenzie Espana MD Work Phone: [facility] 11-13-2024 16:13-0400 Body mass index (BMI) [Ratio] 33.8 kg/m2 Dr. Kenzie Espana MD Work Phone: [facility] 11-13-2024 16:13-0400 Body temperature 96.7 [degF] Dr. Kenzie Espana MD Work Phone: [facility] 11-13-2024 16:13-0400 Body weight 107.[address] Kenzie Espana MD Work Phone: [facility] 11-13-2024 16:13-0400 Diastolic blood pressure 108 mm[Hg] Dr. Kenzie Espana MD Work Phone: [facility] 11-13-2024 16:13-0400 Heart rate 69 /min Dr. Kenzie Espana MD Work Phone: [facility] 11-13-2024 16:13-0400 Respiratory rate 16 /min Dr. Kenzie Espana MD Work Phone: [facility] 11-13-2024 16:13-0400 SaO2% (BldA) [Mass fraction] 96 % Dr. Kenzie Espana MD Work Phone: [facility] 11-13-2024 16:13-0400 Systolic blood pressure 162 mm[Hg] Dr. Kenzie Espana MD Work Phone: [facility] 11-07-2024 09:17-0400 Diastolic blood pressure 100 mm[Hg] Dr. Kenzie Espana MD Work Phone: [facility] 11-07-2024 09:17-0400 Systolic blood pressure 168 mm[Hg] Dr. Kenzie Espana MD Work Phone: [facility] 11-07-2024 09:07-0400 Body height 177.[address] Kenzie Espana MD Work Phone: [facility] 11-04-2024 14:24-0400 Body mass index (BMI) [Ratio] 33.9 kg/m2 Dr. Kenzie Espana MD Work Phone: [facility] 11-04-2024 14:24-0400 Body weight 107.[address] Kenzie Espana MD Work Phone: [facility] 11-04-2024 14:24-0400 Diastolic blood pressure 92 mm[Hg] Dr. Kenzie Espana MD Work Phone: [facility] 11-04-2024 14:24-0400 Systolic blood pressure 150 mm[Hg] Dr. Kenzie Espana MD Work Phone: [facility] 10-30-2024 07:41-0400 Body height 177.[address] Kenzie Espana MD Work Phone: [facility] 10-30-2024 07:41-0400 Body mass index (BMI) [Ratio] 33.3 kg/m2 Dr. Kenzie Espana MD Work Phone: [facility] 10-30-2024 07:41-0400 Body temperature 97.1 [degF] Dr. Kenzie Espana MD Work Phone: [facility] 10-30-2024 07:41-0400 Body weight 105.[address] Kenzie Espana MD Work Phone: [facility] 10-30-2024 07:41-0400 Diastolic blood pressure 84 mm[Hg] Dr. Kenzie Espana MD Work Phone: [facility] 10-30-2024 07:41-0400 Heart rate 88 /min Dr. Kenzie Espana MD Work Phone: [facility] 10-30-2024 07:41-0400 Respiratory rate 16 /min Dr. Kenzie Espana MD Work Phone: [facility] 10-30-2024 07:41-0400 SaO2% (BldA) [Mass fraction] 96 % Dr. Kenzie Espana MD Work Phone: [facility] 10-30-2024 07:41-0400 Systolic blood pressure 128 mm[Hg] Dr. Kenzie Espana MD Work Phone: [facility] 10-21-2024 10:20-0400 Body mass index (BMI) [Ratio] 33.7 kg/m2 Dr. Kenzie Espana MD Work Phone: [facility] 10-21-2024 10:20-0400 Body weight 106.[address] Kenzie Espana MD Work Phone: [facility] 10-21-2024 10:20-0400 Diastolic blood pressure 98 mm[Hg] Dr. Kenzie Espana MD Work Phone: [facility] 10-21-2024 10:20-0400 Systolic blood pressure 148 mm[Hg] Dr. Kenzie Espana MD Work Phone: [facility] 08-06-2024 10:28-0500 Body mass index (BMI) [Ratio] 34.3 kg/m2 Dr. Kenzie Espana MD Work Phone: [facility] 08-06-2024 10:28-0500 Body weight 108.[address] Kenzie Espana MD Work Phone: [facility] 08-06-2024 10:28-0500 Diastolic blood pressure 82 mm[Hg] Dr. Kenzie Espana MD Work Phone: [facility] 08-06-2024 10:28-0500 Systolic blood pressure 134 mm[Hg] Dr. Kenzie Espana MD Work Phone: [facility] 01-08-2024 11:02-0400 Body height 175 cm Tariq Anders MD Work Phone: [facility] 01-08-2024 11:02-0400 Body mass index (BMI) [Ratio] 33.44 kg/m2 Tariq Anders MD Work Phone: [facility] 01-08-2024 11:02-0400 Body weight 102.4 kg Tariq Anders MD Work Phone: [facility] 12-12-2022 14:31-0400 Body height 177.[address] Kenzie Espana Work Phone: [facility] 12-12-2022 14:31-0400 Body mass index (BMI) [Ratio] 31.8 kg/m2 Dr. Kenzie Espana Work Phone: [facility] 12-12-2022 14:31-0400 Body temperature 97.5 [degF] Dr. Kenzie Espana Work Phone: [facility] 12-12-2022 14:31-0400 Body weight 100.[address] Kenzie Espana Work Phone: [facility] 12-12-2022 14:31-0400 Diastolic blood pressure 76 mm[Hg] Dr. Kenzie Espana Work Phone: [facility] 12-12-2022 14:31-0400 Heart rate 77 /min Dr. Kenzie Espana Work Phone: [facility] 12-12-2022 14:31-0400 Respiratory rate 16 /min Dr. Kenzie Espana Work Phone: [facility] 12-12-2022 14:31-0400 SaO2% (BldA) [Mass fraction] 97 % Dr. Kenzie Espana Work Phone: [facility] 12-12-2022 14:31-0400 Systolic blood pressure 112 mm[Hg] Dr. Kenzie Espana Work Phone: [facility] 11-17-2022 14:00-0400 Body weight 102.[address] Kenzie Espana Work Phone: [facility] 10-24-2022 11:51-0400 Body height 177.[address] Kenzie Espana Work Phone: [facility] 10-24-2022 11:51-0400 Body weight 100.[address] Kenzie Espana Work Phone: [facility] 10-10-2022 12:58-0400 Body height 177.[address] Kenzie Espana Work Phone: [facility] 10-10-2022 12:58-0400 Body weight 100.[address] Kenzie Espana Work Phone: [facility] 09-09-2022 09:46-0400 Body height 177.[address] Kenzie Espana Work Phone: [facility] 09-09-2022 09:46-0400 Body mass index (BMI) [Ratio] 32.7 kg/m2 Dr. Kenzie Espana Work Phone: [facility] 09-09-2022 09:46-0400 Body temperature 97.6 [degF] Dr. Kenzie Espana Work Phone: [facility] 09-09-2022 09:46-0400 Body weight 103.[address] Kenzie Espana Work Phone: [facility] 09-09-2022 09:46-0400 Diastolic blood pressure 94 mm[Hg] Dr. Kenzie Espana Work Phone: [facility] 09-09-2022 09:46-0400 Heart rate 81 /min Dr. Kenzie Espana Work Phone: [facility] 09-09-2022 09:46-0400 Respiratory rate 16 /min Dr. Kenzie Espana Work Phone: [facility] 09-09-2022 09:46-0400 SaO2% (BldA) [Mass fraction] 98 % Dr. Kenzie Espana Work Phone: [facility] 09-09-2022 09:46-0400 Systolic blood pressure 112 mm[Hg] Dr. Kenzie Espana Work Phone: [facility] Encounters Encounter Date Encounter Type Care Provider Facility Start: 05-05-2025 [facility] Facility:[facility] Start: 02-17-2025 End: 02-17-[address] Kenzie Espana MD -[facility] Work Phone: Start: 02-17-2025 End: 02-17-[address] Kenzie Espana MD Work Phone: -[facility] Start: 01-20-2025 End: 01-20-2025 Subsequent hospital visit by physician Rena [facility] Tonia Santiago Work Phone: Radiology Start: 01-20-2025 End: 01-20-2025 Patient encounter procedure Rosalind Almaguer MD Work Phone: Pulmonary Medicine Comment on above: Abnormal CXR with mu ltiple nodules (Primary Dx) Start: 01-20-2025 End: 01-20-2025 ambulatory ROSALIND ALMAGUER Facility:[facility] Start: 12-13-2024 ambulatory [facility] Facility:[facility] Start: 11-26-2024 End: 11-26-2024 Patient encounter procedure BIM NURSE -[facility] Work Phone: Start: 11-26-2024 End: 11-26-[address] Kenzie Espana MD Work Phone: [facility] [employer] [facility] Work Phone: Start: 11-24-2024 End: 11-24-2024 Emergency department patient visit JESUS MANUEL PIERRE MD Facility:[facility] Start: 11-13-2024 End: 11-13-2024 Patient encounter procedure Bryant ESCOBAR -[facility] Work Phone: Start: 11-13-2024 End: 11-13-[address] Kenzie Espana MD Work Phone: [facility] [employer] [facility] Work Phone: Start: 11-07-2024 End: 11-07-2024 Patient encounter procedure ILIANA NURSE -[facility] Work Phone: Start: 11-07-2024 End: 11-07-[address] Kenzie Espana MD Work Phone: [facility] [employer] [facility] Work Phone: Start: 11-04-2024 End: 11-04-2024 Patient encounter procedure Essie HOPE -[facility] Work Phone: Start: 11-04-2024 End: 11-04-2024 ambulatory Kenzie Bonde Facility:[facility] Start: 10-30-2024 End: 10-30-2024 Patient encounter procedure Bryant ESCOBAR -[facility] Work Phone: Start: 10-30-2024 End: 10-30-[address] Kenzie Espana MD Work Phone: [facility] Work Phone: Start: 10-30-2024 End: 10-30-2024 ambulatory [facility] Facility:[facility] Start: 10-21-2024 End: 10-21-2024 Patient encounter procedure Essie Snow NP-C -[facility] Work Phone: Start: 10-21-2024 End: 10-21-20[facility] Start: 08-06-2024 End: 08-06-2024 Patient encounter procedure Essie Snow NP-C -[facility] Work Phone: Start: 08-06-2024 End: 08-06-2024 Patient encounter status Essie [place] NP-C [facility] Start: 08-06-2024 End: 08-06-2024 [facility] Start: 08-06-2024 End: 08-06-2024 ambulatory [facility] Facility:[facility] Start: 01-08-2024 End: 01-08-2024 Patient encounter procedure Tariq Anders MD Work Phone: Family Medicine Comment on above: APPOINTMENT CANCELLE D (Primary Dx) Start: 11-01-2023 ambulatory Tariq Anders MD Work Phone: Internal Medicine [facility] Start: 12-12-2022 End: 12-12-[address] Kenzie Espana Work Phone: [facility] Work Phone: Start: 12-12-2022 End: 12-12-[address] Kenzie Espana Work Phone: [facility] Internal Medicine Start: 11-23-2022 ambulatory Tariq Anders MD Work Phone: Internal Medicine [facility] Start: 11-17-2022 End: 11-23-[address] Kenzie Espana Work Phone: [facility] Work Phone: Start: 11-17-2022 End: 11-23-[address] Kenzie Espana Work Phone: [facility] Start: 10-10-2022 End: 10-23-[address] Kenzie Espana Work Phone: [facility] Work Phone: Start: 10-10-2022 End: 10-23-[address] Kenzie Espana Work Phone: [facility] Start: 10-03-2022 End: 10-03-[address] Kenzie Espana Work Phone: [facility] Work Phone: Start: 10-03-2022 End: 10-03-[address] Kenzie Espana Work Phone: [facility]Outpatient Breast Imaging Start: 09-09-2022 End: 09-09-[address] Kenzie Espana Work Phone: [facility] Work Phone: Start: 09-09-[address] Kenzie Espana Work Phone: [facility] Start: 09-09-2022 End: 09-09-2022 Encounter for general adult medical examination without abnormal findings Dr. Kenzie Espana Work Phone: [facility] Start: 09-09-2022 End: 09-09-[address] Kenzie Espana Work Phone: [facility] Internal Medicine Start: 12-22-2021 ambulatory Tariq Anders MD Work Phone: Internal Medicine [facility] [place] Procedures Date Procedure Procedure Detail Performing Clinician Start: 01-20-2025 Radiologic exam ches t 2 views Rosalind Almaguer MD Work Phone: Start: 10-30-2024 Vitamin D, 25-hydrox y measurement Dr. Kenzie Espana MD Work Phone: Comment on above: Vitamin D StatusDefi ciency: <20 ng/mL (50nmol/L)Insufficiency: 20-30 ng/mL (50-75 nmol/L)Sufficiency: 30-100 ng/mL (75-250 nmol/L)Toxicity: >100 ng/mL (>250 nmol/L) Start: 08-06-2024 Liquid based cervica l cytology screening Dr. Kenzie Espana MD Work Phone: Comment on above: NEGATIVE FOR INTRAEP ITHELIAL LESION OR MALIGNANCY.THIS SPECIMEN WAS RESCREENED PART OF OUR [facility] PROGRAM. This liquid based Th inPrep(R) pap test was screened withthe use of an image guided system. Start: 08-06-2024 Gram stain microscopy Brenda Espana MD Work Phone: Start: 08-06-[address] Kenzie Espana MD Work Phone: Start: 08-06-2024 Estradiol measurement Brenda Espana MD Work Phone: Comment on above: NORMAL REFERENCE RAN GES FEMALE FOLLICULAR 21.4 - 164.8 pg/mL MID-CYCLE PEAK 49.9 - 367.2 pg/mL LUTEAL 40.2 - 259.0 pg/mL POST-MENOPAUSAL ON MHT <11.0 - 462.1 pg/mL NOT ON MHT <11.0 - 58.3 pg/mL MALE <11.0 - 52.5 pg/mL NOTE:[employer] HAS CONFIRMED THE DRUG FULVETRANT (FASLODEX) MAY CAUSE FALSELY ELEVATED ESTRADIOL RESULTS WHEN USING THIS TEST METHOD. IF PATIENT IS TAKING FULVESTRANT AN ALTERNATIVE METHOD SHOULD BE USED TO DETERMINE ESTRADIOL CONCENTRATION. Start: 08-06-2024 Follicle stimulating hormone measurement Dr. Kenzie Espana MD Work Phone: Comment on above: NORMAL REFERENCE RAN GES FEMALE FOLLICULAR 2.3 - 12.6 mIU/mL MID-CYCLE PEAK 5.2 - 17.5 mIU/mL LUTEAL 1.7 - 12.9 mIU/mL POST-MENOPAUSAL ON MHT 5.9 - 72.8 mIU/mL NOT ON MHT 12.7 - 132.2 mlU/mL MALE 0.7 - 10.8 mIU/mL Start: 10-03-2022 Screening mammography Brenda Espana Work Phone: Start: 03-04-2021 Adult depression scr eening assessment Tariq Anders MD Work Phone: Start: 03-20-2017 Lipid 1996 panel - S tosha or Plasma Tariq Anders MD Work Phone: Plan of Treatment Date Care Activity Detail Author Start: 06-04-2028 Urine microalbumin profile [facility] Start: 11-25-2027 Diabetes Screening Diabetes Screenin g [facility] Start: 02-24-2025 Influenza vaccination Influenza Vacc ine (#1) [facility] Start: 01-07-2025 Annual PCP Team Child & 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 Psychiatrist jayme Disease Visit Annual PCP Team Chronic Disease Visit [facility] Start: 02-25-2024 Influenza vaccination [facility] Start: 06-26-2023 Behavioral Health Screening Behavioral Health Screening [facility] Start: 04-15-2023 DIABETES SCREEN DIABETES SCREEN [facility] Start: 04-15-2023 Diabetes Screening Diabetes Screenin g [facility] Start: 02-24-2023 Covid-19 Vaccine ( season) Covid-19 Vaccine ( season) [facility] Start: 02-24-2023 Influenza vaccination INFLUENZ A (Season Ended) [facility] Start: 09-09-2022 Patient referral [facility] Work Phone: Start: 06-26-2022 DEPRESSION ASSESSMENT DEPRESSION ASS ESSMENT [facility] Start: 05-06-2022 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 DISEASE VISIT ANNUAL PCP TEAM CHRONIC DISEASE VISIT [facility] Start: 04-29-2022 BP CONTROLLED (<130/80) BP CONTROLLE D (<130/80) [facility] Start: 03-20-2022 Lipid panel Lipid Screening [facility] Start: 03-20-2022 LIPID SCREEN LIPID SCREEN [facility] Start: 03-04-2022 Adult depression screening assessment DEPRESSION SCREENING [facility] Start: 02-24-2022 Influenza vaccination INFLUENZA (#1) [facility] Start: 03-18-2020 HPV TESTING HPV TESTING [facility] Start: 03-18-2020 PAP TESTING PAP TESTING [facility] Start: 03-18-2020 Screening for malign ant neoplasm of cervix [facility] Start: 12-31-2019 Pneumococcal Vaccine : 50+ (1 of 1 - PCV) Pneumococcal Vaccine: 50+ (1 of 1 - PCV) [facility] Start: 12-31-2019 SHINGRIX VACCINE (1 of 2) SHINGRIX VACCINE (1 of 2) [facility] Start: 2014 COLOGUARD (FIT-DNA) COLOGUARD (FIT-D NA) [facility] Start: 2014 Colonoscopy COLONOSCOPY [facility] Start: 2014 COLORECTAL CANCER SCREENING COLORECTAL CANCER SCREENING [facility] Start: [address] COLONOGRAPHY [facility] Start: 2014 FECAL OCCULT BLOOD FECAL OCCULT BLOO D [facility] Start: 2014 Screening for malign ant neoplasm of colon [facility] Start: 2014 SIGMOIDOSCOPY SIGMOIDOSCOPY [facility] Start: 2009 Mammography MAMMOGRAM [facility] Start: 2009 Screening for malign ant neoplasm of breast Mammogram Screening [facility] Start: 1988 Hepatitis B Vaccine (1 of 3 - 19+ 3-dose series) Hepatitis B Vaccine (1 of 3 - 19+ 3-dose series) [facility] Start: 12-31-1987 Anxiety Screening Anxiety Screening [facility] Start: 12-31-1987 BP CONTROLLED (<130/80) BP CONTROLLE D (<130/80) [facility] Start: 12-31-1987 Depression Screening Depression Scre ening [facility] Start: 12-31-1987 HEPATITIS C SCREENING HEPATITIS C [facility] Start: 12-31-1987 Hepatitis C screening Hepatitis C [facility] Start: 12-31-1987 HIV SCREENING HIV SCREENING [facility] Start: 12-31-1987 HIV screening HIV Screening [facility] Start: 07-02-1970 COVID-19 VACCINE (#1) COVID-19 VACCI NE (#1) [facility] Start: 1969 HEPATITIS B (1 of 3 - 3-dose series) HEPATITIS B (1 of 3 - 3-dose series) [facility] Hemoglobin A1c/Hemoglobin.total in Blood [facility] End: 12-23-2023 SAVANNAH SCREENING [facility] SCREENING Radiology Routine Encounter for screening mammogram for breast cancer 1 Occurrences starting 11/23/2022 until 12/23/2023 [facility] Work Phone: Comment on above: 1 Occurrences starti ng 11/23/2022 until 12/23/2023 MG Breast - bilatera l Screening [facility] MG Breast - bilatera l Screening [facility] End: 11-30-2024 MG Breast Screening [facility] SCREENING Radiology Routine Encounter for screening mammogram for breast cancer 1 Occurrences starting 11/01/2023 until 11/30/2024 [facility] Work Phone: Comment on above: 1 Occurrences starti ng 11/01/2023 until 11/30/2024 Patient referral [facility] Work Phone: End: 01-21-2023 Screening mammography bi 2-view breast inc cad SAVANNAH SCREENING Radiology Routine Encounter for screening mammogram for breast cancer 1 Occurrences starting 12/22/2021 until 01/21/2023 [facility] Work Phone: Comment on above: 1 Occurrences starti ng 12/22/2021 until 01/21/2023 XR Knee 3 Views [facility] Immunizations Immunization Date Immunization Notes Care Provider John stewart 06-04-2018 influenza, injectabl e, quadrivalent, contains preservative Tariq Anders MD Work Phone: [facility] 06-04-2018 tetanus toxoid, redu charley diphtheria toxoid, and acellular pertussis vaccine, adsorbed Tariq Anders MD Work Phone: [facility] 06-04-2018 influenza virus vacc ine, unspecified formulation Tariq Anders MD Work Phone: [facility] 03-22-2017 influenza, injectabl e, quadrivalent, contains preservative Tariq Anders MD Work Phone: [facility] 03-19-2015 influenza, injectabl e, quadrivalent, contains preservative Tariq Anders MD Work Phone: [facility] 05-10-2007 influenza virus vacc ine, unspecified formulation Tariq Anders MD Work Phone: [facility] Payers Date Payer Category Payer Self-pay 2023 Private Health Insurance [id number] 2023 Private Health Insurance [id number] 2019 Unknown MMO MMO [employer] [id number] 2019-Present [phone] [address] [place] [address] PPO [id number] 2019 Unknown MMO MMO [employer] [id number] 2019-Present [phone] [address] [place] [address] PPO [id number] Private Health Insurance [id number] Unknown [id number] Unknown [id number] Unknown [id number] Unknown [id number] Unknown [id number] Unknown [id number] Unknown [id number] Unknown [id number] Unknown [id number] Unknown [id number] Unknown [id number] Social History Date Type Detail Facility Start: 09-20-2011 End: 10-30-2024 Tobacco smoking status NHIS Ex-smoker [facility] Start: 06-26-1989 End: 09-19-1998 History of tobacco use Current smoker [facility] Start: 09-20-2011 End: 01-20-2025 Tobacco use and exposure Smokeless tobacco non-user [facility] Start: 05-06-2021 End: 01-20-2025 Alcohol intake Current drinker of alcohol (finding) [facility] Start: 1970 Sex Assigned At Not on file [facility] Start: 09-09-2022 End: 12-12-2022 Tobacco smoking status MTIS Unknown if ever smoked [facility] Start: 1970 Sex Assigned At Female [facility] Start: 06-26-1989 End: 09-19-1998 History of tobacco use Cigarette Smoker [facility] Start: 05-06-2021 End: 11-25-2024 History of Social function [facility] Start: 05-06-2021 End: 11-25-2024 Tobacco use panel [facility] Adult Depression Screening Assessment 0 [facility] Start: 01-20-2025 Tobacco Comment Started at age 19 [facility] Functional Status Date Assessment Result Facility 12-09-2014 Are you deaf, or do you have serious difficulty hearing No 12/09/2014 4:34 PM EDT Karen Webb MA No [facility] 12-09-2014 Are you blind, or do you have serious difficulty seeing, even when wearing glasses No 12/09/2014 4:34 PM EDT Karen Webb MA [facility] 12-09-2014 Do you have serious difficulty walking or climbing stairs No 12/09/2014 4:34 PM EDT Karen Webb MA [facility] 12-09-2014 Do you have difficul ty dressing or bathing No 12/09/2014 4:34 PM EDT Karen Webb MA [facility] 12-09-2014 Because of a physica l, mental, or emotional condition, do you have difficulty doing errands alone such as visiting a physician's office or shopping No 12/09/2014 4:34 PM EDT Karen Webb MA [facility] Mental Status Date Assessment Result Facility 12-09-2014 Because of a physica l, mental, or emotional condition, do you have serious difficulty concentrating, remembering, or making decisions No 12/09/2014 4:34 PM EDT Karen Webb MA [facility] Clinical Notes 08-28-2017 to 01-20-2025 Rosalind Almaguer MD - 01/20/2025 8:00 AM EDT Note Date & Type Note Facility 01-20-2025 History of Present illness Narrative Images from the original note were not included. . [facility] Note Patient name: Julieta Valle PCP: Kenzie Espana MD Referring Physician: Self Recording using MatrixVision software for draft documentation of the visit was discussed with the patient/authorized senior account representative; all questions welcomed and answered. Patient/authorized senior account representative agreed to proceed CC: Lung nodules noted on chest x-ray HPI: Julieta Valle 54 year old female former 9-pack-year smoker, quitting in 1998 with PMH significant for obesity, asthma, HTN, and HLD. Recently seen in ED for chest pain in association with elevated BP. CXR showed nodular densities in both lung colon with question of EKG pad on one side and nipple shadow on the other. She has a history of asthma since childhood which she describes as mild. No need for controller inhaler therapy. She denies any significant respiratory symptoms such as shortness of breath, wheezing, cough. She had chest pain associated with her hypertensive episode. No prior history of cancer or family history of cancer. She is a former smoker 1 pack a day for 9 years. She quit more than 15 years ago. DATA: Imaging / Diagnostic Studies: DATE OF EXAM: Nov 24 2024 3:43AM [id number] - XR CHEST 2V FRONTAL/LAT / IMPRESSION: No acute radiographic abnormality. Questionable nodular densities, uncertain whether they are artifactual. Non-emergent follow-up after removal of overlying objects and placement of nipple markers recommended. I personally reviewed the images as well as with the patient and agree with the above assessment PAST MEDICAL HISTORY Diagnosis Date Asthma BMI 34.0-34.9,adult 06/30/2016 Obesity (BMI 30.0-34.9) 06/30/2016 Oral herpes simplex infection 09/18/2013 Other and unspecified hyperlipidemia 09/18/2013 Unspecified essential hypertension 08/19/2013 ALLERGIES No Known Allergies amLODIPine-Valsartan 5-320 mg per tablet Take 1 tablet by mouth once daily. cholecalciferol, Vitamin D3, (VITAMIN D3) 1,250 mcg (50,000 unit) cap capsule Take 1 capsule by mouth one time a week. albuterol HFA (PROAIR HFA) 90 mcg/actuation inhaler Inhale 2 Puffs as instructed every 4 hours as needed. atorvastatin (LIPITOR) 20 mg tablet Take 20 mg by mouth once daily. Social History Tobacco Use Smoking status: Former Average packs/day: 1 pack/day for 9.0 years (9.0 ttl pk-yrs) Types: Cigarettes Start date: 1989 Smokeless tobacco: Never Tobacco comments: Started at age 19 Vaping Use Vaping status: Never Used Substance Use Topics Alcohol use: Yes Drug use: No FAMILY HISTORY Problem Relation Age of Onset Hypertension Mother Hypertension Father Diabetes Father No Ocular Disease Other PAST SURGICAL HISTORY Procedure Laterality Date NONE PMH, Social history, family history and surgical history reviewed and updated in EMR REVIEW OF SYSTEMS: CONSTITUTIONAL: No fevers, chills, nightsweats, unintended weight loss HEENT: Denies nasal congestion/sinus symptoms, allergy problems. EYES: No visual changes CARDIOVASCULAR: No chest pain, dyspnea, palpitations, orthopnea, edema. PULM: See HPI GI: No reflux NEURO: No strokelike symptoms PSY: No concerns INTEGUMENTARY: No new skin changes, eczema PHYSICAL EXAMINATION: BP 134/86 Pulse 63 Resp 14 Ht 5' 10.5 (1.79m) Wt 238 lb (108.0kg) SpO2 96% LMP 01/07/2023 BMI 33.66 kg/(m^2). General Appearance: Age-appropriate female, NAD. Skin: Skin color, texture, turgor normal, no suspicious rashes or lesions. Head: Normocephalic, no masses, lesions, tenderness or abnormalities. Neck: No masses or adenopathy. Lungs: Not labored, normal to percussion, no wheezes or crackles. Heart: Regular rate and rhythm, no murmurs. Extremities:, No clubbing. Assessment/Plan: 1. Abnormal chest x-ray with multiple nodules -Questionable nodules. Repeat chest x-ray with nipple markers. If nodularity persistent, will order CT of the chest Rosalind Almaguer MD [facility] documented in this encounter [facility] 01-20-2025 Note HNO ID: [id number] Author: ROSALIND ALMAGUER MD Service: ? Author Type: Physician Type: Progress Notes Filed: 01/20/2025 08:35 Note Text: . [facility] Patient name: Julieta Valle PCP: Kenzie Espana MD Referring Physician: Self Recording using MatrixVision software for draft documentation of the visit was discussed with the patient/authorized senior account representative; all questions welcomed and answered. Patient/authorized senior account representative agreed to proceed CC: Lung nodules noted on chest x-ray HPI: Julieta Valle 54 year old female former 9-pack-year smoker, quitting in 1998 with PMH significant for obesity, asthma, HTN, and HLD. Recently seen in ED for chest pain in association with elevated BP. CXR showed nodular densities in both lung colon with question of EKG pad on one side and nipple shadow on the other. She has a history of asthma since childhood which she describes as mild. No need for controller inhaler therapy. She denies any significant respiratory symptoms such as shortness of breath, wheezing, cough. She had chest pain associated with her hypertensive episode. No prior history of cancer or family history of cancer. She is a former smoker 1 pack a day for 9 years. She quit more than 15 years ago. DATA: Imaging / Diagnostic Studies: DATE OF EXAM: Nov 24 2024 3:43AM EGX [id number] - XR CHEST 2V FRONTAL/LAT / IMPRESSION: No acute radiographic abnormality. Questionable nodular densities, uncertain whether they are artifactual. Non-emergent follow-up after removal of overlying objects and placement of nipple markers recommended. I personally reviewed the images as well as with the patient and agree with the above assessment PAST MEDICAL HISTORY Diagnosis Date Asthma BMI 34.0-34.9,adult 06/30/2016 Obesity (BMI 30.0-34.9) 06/30/2016 Oral herpes simplex infection 09/18/2013 Other and unspecified hyperlipidemia 09/18/2013 Unspecified essential hypertension 08/19/2013 ALLERGIES No Known Allergies amLODIPine-Valsartan 5-320 mg per tablet Take 1 tablet by mouth once daily. cholecalciferol, Vitamin D3, (VITAMIN D3) 1,250 mcg (50,000 unit) cap capsule Take 1 capsule by mouth one time a week. albuterol HFA (PROAIR HFA) 90 mcg/actuation inhaler Inhale 2 Puffs as instructed every 4 hours as needed. atorvastatin (LIPITOR) 20 mg tablet Take 20 mg by mouth once daily. Social History Tobacco Use Smoking status: Former Average packs/day: 1 pack/day for 9.0 years (9.0 ttl pk-yrs) Types: Cigarettes Start date: 1989 Smokeless tobacco: Never Tobacco comments: Started at age 19 Vaping Use Vaping status: Never Used Substance Use Topics Alcohol use: Yes Drug use: No FAMILY HISTORY Problem Relation Age of Onset Hypertension Mother Hypertension Father Diabetes Father No Ocular Disease Other PAST SURGICAL HISTORY Procedure Laterality Date NONE PMH, Social history, family history and surgical history reviewed and updated in EMR REVIEW OF SYSTEMS: CONSTITUTIONAL: No fevers, chills, nightsweats, unintended weight loss HEENT: Denies nasal congestion/sinus symptoms, allergy problems. EYES: No visual changes CARDIOVASCULAR: No chest pain, dyspnea, palpitations, orthopnea, edema. PULM: See HPI GI: No reflux NEURO: No strokelike symptoms PSY: No concerns INTEGUMENTARY: No new skin changes, eczema PHYSICAL EXAMINATION: BP 134/86 Pulse 63 Resp 14 Ht 5' 10.5 (1.79m) Wt 238 lb (108.0kg) SpO2 96% LMP 01/07/2023 BMI 33.66 kg/(m2). General Appearance: Age-appropriate female, NAD. Skin: Skin color, texture, turgor normal, no suspicious rashes or lesions. Head: Normocephalic, no masses, lesions, tenderness or abnormalities. Neck: No masses or adenopathy. Lungs: Not labored, normal to percussion, no wheezes or crackles. Heart: Regular rate and rhythm, no murmurs. Extremities:, No clubbing. Assessment/Plan: 1. Abnormal chest x-ray with multiple nodules -Questionable nodules. Repeat chest x-ray with nipple markers. If nodularity persistent, will order CT of the chest Rosalind Almaguer MD Respiratory [place] [facility] 11-24-2024 Note SARS-COV-2 (AGENT OF COVID-19) RNA: Not detected INFLUENZA A RNA: Not detected INFLUENZA B RNA: Not detected RESPIRATORY SYNCYTIAL VIRUS (RSV) RNA: Not detected [facility] Comment on above: Performed By: #### 9 [id number] #### [facility] CLIA [id number] [address] [place] [address] [place] [address] [place] 10-21-2024 Evaluation note Diagnosis Onset Date Resolution Climacteric acute October 21 025 10:18am Menopausal hot flushes acute Ap ril 2024 10:18am Hypertension chronic October 21, 2024 10:18am Postmenopausal HRT (hormone replacement therapy) deleted October 21, 2024 10:18am Climacteric acute October 30, 2024 7:37am Asthma chronic October 30, 2024 7:37am Hyperlipidemia chronic October 30 025 7:37am Hypertension chronic October 30 7:37am Obesity (BMI 30-39.9) chronic October 30, 2024 7:37am Climacteric acute November 04 2:21pm Menopausal hot flushes acute Ma y 12th, 2025 2:21pm Hypertension chronic November 04 2:21pm Hypertension chronic November 13 3:58pm [facility] Work Phone: 1(816) 286-280402-11-2025 Evaluation note* Diagnosis Onset Date Resolution Status Admit Date Climacteric acute July 10:23am Menopausal hot flushes acute Fe bruary 2024 10:23am Routine gynecological examination noneactive August 06 10:23am Vaginal odor noneactive July 10:23am Pap smear for cervical cance r screening noneactive August 06 10:23am Climacteric acute October 21 10:18am Menopausal hot flushes acute Ap ril 2024 10:18am Postmenopausal HRT (hormone replacement therapy) acute October 21, 2024 10:18am Hypertension chronic October 21, 2024 10:18am Climacteric acute October 30, 2024 7:37am Asthma chronic October 30, 2024 7:37am Hyperlipidemia chronic October 30 7:37am Hypertension chronic October 30 7:37am Obesity (BMI 30-39.9) chronic October 30, 2024 7:37am [facility] Work Phone: 1(584) 507-282002-11-2025 Evaluation note* Diagnosis Onset Date Resolution Status Admit Date Climacteric acute July 10:23am Menopausal hot flushes acute Fe bruary 2024 10:23am Routine gynecological examination noneactive August 06 10:23am Vaginal odor noneactive July 10:23am Pap smear for cervical cance r screening noneactive August 06 10:23am Climacteric acute October 21 10:18am Menopausal hot flushes acute Ap ril 2024 10:18am Hypertension chronic October 21, 2024 10:18am Postmenopausal HRT (hormone replacement therapy) deleted October 21, 2024 10:18am Climacteric acute October 30, 2024 7:37am Asthma chronic October 30, 2024 7:37am Hyperlipidemia chronic October 30, 7:37am Hypertension chronic October 30 7:37am Obesity (BMI 30-39.9) chronic October 30, 2024 7:37am Climacteric acute November 04 2:21pm Menopausal hot flushes acute Ma y 2024 2:21pm Hypertension chronic November 04 2:21pm [place] [employer] [facility] Work Phone: 1(891) 788-370602-11-2025 Evaluation note* Diagnosis Onset Date Resolution Status Admit Date Climacteric acute July 10:23am Menopausal hot flushes acute Fe bruary 2024 10:23am Routine gynecological examination noneactive August 06 10:23am Vaginal odor noneactive July 10:23am Pap smear for cervical cance r screening noneactive August 06 10:23am Climacteric acute October 21 10:18am Menopausal hot flushes acute Ap ril 2024 10:18am Hypertension chronic October 21, 2024 10:18am Postmenopausal HRT (hormone replacement therapy) deleted October 21, 2024 10:18am Climacteric acute October 30, 2024 7:37am Asthma chronic October 30, 2024 7:37am Hyperlipidemia chronic October 30 7:37am Hypertension chronic October 30 7:37am Obesity (BMI 30-39.9) chronic October 30, 2024 7:37am Climacteric acute November 04 2:21pm Menopausal hot flushes acute Ma y 2024 2:21pm Hypertension chronic November 04 2:21pm Hypertension chronic November 13 3:58pm [place] [employer] [facility] Work Phone: [phone]) 561-960503-05-2018 History of Past illness Narrative* Problem Noted Date Resolved Date BMI 31.0-31.9,adult 08/28/2017 01/07/2019 BMI 33.0-33.9,adult 07/25/2017 08/28/2017 BMI 32.0-32.9,adult 03/22/2017 08/28/2017 BMI 34.0-34.9,adult 06/30/2016 03/22/2017 Cervicalgia 03/24/2014 01/07/2019 Lumbago 03/24/2014 01/07/2019 Obesity 08/19/2013 06/30/2016 documented as of this encounter (statuses as of 12/27/2021) [facility]03-05-2018 History of Past illness Narrative* Problem Noted Date Resolved Date BMI 31.0-31.9,adult 08/28/2017 01/07/2019 BMI 33.0-33.9,adult 07/25/2017 08/28/2017 BMI 32.0-32.9,adult 03/22/2017 08/28/2017 BMI 34.0-34.9,adult 06/30/2016 03/22/2017 Cervicalgia 03/24/2014 01/07/2019 Lumbago 03/24/2014 01/07/2019 Obesity 08/19/2013 06/30/2016 documented as of this encounter (statuses as of 11/28/2022) [facility] note* Diagnosis Encounter for screening mammogram for breast cancer documented in this encounter [facility] note* Diagnosis Onset Date Resolution Status Health care maintenance acut e Bilateral knee pain chronic Hypertension chronic Obesity (BMI 30-39.9) [facility] Work Phone: evaluation note* Diagnosis Encounter for screening mammogram for breast cancer documented in this encounter [facility] note* Diagnosis Onset Date Resolution Status Health care maintenance acut e Bilateral knee pain chronic Hypertension chronic Obesity (BMI 30-39.9) chroni c Hyperlipidemia acute Hypertension chronic Obesity (BMI 30-39.9) [facility] Work Phone: evaluation note* Diagnosis Encounter for screening mammogram for breast cancer documented in this encounter [facility] note* Diagnosis APPOINTMENT CANCELLED- Primary documented in this encounter [facility] note* Diagnosis Abnormal CXR with multiple nodules- Primary Other nonspecific abnormal finding of lung field documented in this encounter [facility] for referral (narrative)* Diagnostic Procedure Only (Routine) - Pending Review Specialty Diagnoses / Procedures Referred By Contac t Referred To Contact [facility] Diagnoses Encounter for screening mammogram for breast cancer Procedures SAVANNAH SCREENING SCREENING MAMMOGRAPHY BI 2-VIEW BREAST INC CAD Tariq Anders MD [address] [place] [address] [facility] [address] [place] [phone] Referral ID Status Reason Start Date Expiration Date Visits Requested Visits Authorized [id number] Pending Review Auto-Generat ed Referral 12/22/2021 01/21/2023 1 1 [facility] for referral (narrative)* Diagnostic Procedure Only (Routine) - Pending Review Specialty Diagnoses / Procedures Referred By Contac t Referred To Contact [facility] Diagnoses Encounter for screening mammogram for breast cancer Procedures SAVANNAH SCREENING SCREENING MAMMOGRAPHY BI 2-VIEW BREAST INC CAD Tariq Anders MD [address] [place] [address] [facility] [address] [place] [address] Referral ID Status Reason Start Date Expiration Date Visits Requested Visits Authorized [id number] Pending Review Auto-Generat ed Referral 11/23/2022 12/23/2023 1 1 [facility] for referral (narrative)* Diagnostic Procedure Only (Routine) - Pending Review Specialty Diagnoses / Procedures Referred By Contac t Referred To Contact [facility] Diagnoses Encounter for screening mammogram for breast cancer Procedures SAVANNAH SCREENING SCREENING MAMMOGRAPHY BI 2-VIEW BREAST INC CAD Tariq Anders MD [address] [place] [address] [facility] [address] [place] [address] Referral ID Status Reason Start Date Expiration Date Visits Requested Visits Authorized [id number] Pending Review Auto-Generat ed Referral 11/01/2023 11/30/2024 1 [facility]No reason for referral [facility] Work Phone: Summary Purpose Family History No Family History Records Found Relationship Condition Age at Onset Recorded Date/T lydia father Diabetes mellitus Unknown Hypertension Unknown mother Hypertension Unknown Advance Directives No Advanced Directives Records FoundNo Advanced Directives Records FoundNo Advanced Directives Records Found Chief Complaint and Reason for Visit 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 SCREENING OBESITY OBESITY 3 M FU Reason for Visit Health care rhiannon nce Bilateral knee pain Hypertension Obesity (BMI 30-39.9) Hyperlipidemia Hypertension Obesity (BMI 30-39.9) Chief Complaint Admit Date Annual ([employer]) August 06, 2024 10:23am Med check *copay $40 October 21, 2024 10 :18am ACUTE - MED REFILLS October 30, 2024 7:37am Reason for Visit Admit Date Climacteric August 06, 2024 10:23am Menopausal hot flushes August 06 10:23am Routine gynecological examination Februa 2024 10:23am Vaginal odor August 06, 2024 10:23am Pap smear for cervical cancer screening August 06, 2024 10:23am Climacteric October 21, 2024 10: 18am Menopausal hot flushes October 21, 2024 10:18am Postmenopausal HRT (hormone replacement therapy) October 21, 2024 10:18am Hypertension October 21, 2024 10: 18am Climacteric October 30, 2024 7:37am Asthma October 30, 2024 7:37am Hyperlipidemia October 30, 2024 7:37am Hypertension October 30, 2024 7:37am Obesity (BMI 30-39.9) October 30, 2024 7:37 am Chief Complaint Admit Date Annual (SUPER[employer]) August 06, 2024 10:23am Med check *copay $40 October 21, 2024 10 :18am ACUTE - MED REFILLS October 30, 2024 7:37am Med and BP Check *copay $40 May 12th, 20 25 2:21pm BP check compare home cuff November 07 8:58am Reason for Visit Admit Date Climacteric August 06, 2024 10:23am Menopausal hot flushes August 06 10:23am Routine gynecological examination 2024 10:23am Vaginal odor August 06, 2024 10:23am Pap smear for cervical cancer screening August 06, 2024 10:23am Climacteric October 21, 2024 10: 18am Menopausal hot flushes October 21, 2024 10:18am Hypertension October 21, 2024 10: 18am Postmenopausal HRT (hormone replacement therapy) October 21, 2024 10:18am Climacteric October 30, 2024 7:37am Asthma October 30, 2024 7:37am Hyperlipidemia October 30, 2024 7:37am Hypertension October 30, 2024 7:37am Obesity (BMI 30-39.9) October 30, 2024 7:37 am Climacteric November 04, 2024 2:21p m Menopausal hot flushes November 04, 2024 2: 21pm Hypertension November 04, 2024 2:21p m Chief Complaint Admit Date Annual (SUPER[employer]) August 06, 2024 10:23am Med check *copay $40 October 21, 2024 10 :18am ACUTE - MED REFILLS October 30, 2024 7:37am Med and BP Check *copay $40 November 04 2:21pm BP check compare home cuff November 07 8:58am BP ISSUES November 13, 2024 3:58p m Chief Complaint Admit Date Annual ([employer]PER[employer]) August 06, 2024 10:23am Med check *copay $40 October 21, 2024 10 :18am ACUTE - MED REFILLS October 30, 2024 7:37am Med and BP Check *copay $40 November 04 2:21pm BP check compare home cuff November 07 8:58am BP ISSUES November 13, 2024 3:58p m BP CHECK November 26, 2024 2:59p m Reason for Visit Admit Date Climacteric August 06, 2024 10:23am Menopausal hot flushes August 06 10:23am Routine gynecological examination ua 2024 10:23am Vaginal odor August 06, 2024 10:23am Pap smear for cervical cancer screening August 06, 2024 10:23am Climacteric October 21, 2024 10: 18am Menopausal hot flushes October 21, 2024 10:18am Hypertension October 21, 2024 10: 18am Postmenopausal HRT (hormone replacement therapy) October 21, 2024 10:18am Climacteric October 30, 2024 7:37am Asthma October 30, 2024 7:37am Hyperlipidemia October 30, 2024 7:37am Hypertension October 30, 2024 7:37am Obesity (BMI 30-39.9) October 30, 2024 7:37 am Climacteric November 04, 2024 2:21p m Menopausal hot flushes November 04, 2024 2: 21pm Hypertension November 04, 2024 2:21p m Hypertension November 13, 2024 3:58p m Chief Complaint Admit Date Med check *copay $40 October 21, 2024 10 :18am ACUTE - MED REFILLS October 30, 2024 7:37am Med and BP Check *copay $40 November 04 2:21pm BP check compare home cuff November 07 8:58am BP ISSUES November 13, 2024 3:58p m BP CHECK November 26, 2024 2:59p m FOLLOW UP February 17, 2025 8: 49am Reason for Visit Admit Date Climacteric October 21, 2024 10: 18am Menopausal hot flushes October 21, 2024 10:18am Hypertension October 21, 2024 10: 18am Postmenopausal HRT (hormone replacement therapy) October 21, 2024 10:18am Climacteric October 30, 2024 7:37am Asthma October 30, 2024 7:37am Hyperlipidemia October 30, 2024 7:37am Hypertension October 30, 2024 7:37am Obesity (BMI 30-39.9) October 30, 2024 7:37 am Climacteric November 04, 2024 2:21p m Menopausal hot flushes November 04, 2024 2: 21pm Hypertension November 04, 2024 2:21p m Hypertension November 13, 2024 3:58p m Additional Source Comments INFORMATION SOURCE (unrecogn ized section and content) DATE CREATED AUTHOR 04/02/2020 [facility] DATE CREATED AUTHOR AUTHOR'S ORGANIZ ATION 01/21/2025 [facility] DATE CREATED AUTHOR AUTHOR'S ORGANIZ ATION 05/06/2025 [facility] Source Comments (unrecognize d section and content) In the event this informatio n is protected by the Federal Confidentiality of Alcohol and Drug Abuse Patient Records regulations: The Federal rules restrict any use of the information to criminally investigate or prosecute any alcohol or drug abuse patient.[facility] the event this information is protected by the Federal Confidentiality of Alcohol and Drug Abuse Patient Records regulations: The Federal rules restrict any use of the information to criminally investigate or prosecute any alcohol or drug abuse patient.[facility] the event this information is protected by the Federal Confidentiality of Alcohol and Drug Abuse Patient Records regulations: The Federal rules restrict any use of the information to criminally investigate or prosecute any alcohol or drug abuse patient.[facility] the event this information is protected by the Federal Confidentiality of Alcohol and Drug Abuse Patient Records regulations: The Federal rules restrict any use of the information to criminally investigate or prosecute any alcohol or drug abuse patient.[facility] the event this information is protected by the Federal Confidentiality of Alcohol and Drug Abuse Patient Records regulations: The Federal rules restrict any use of the information to criminally investigate or prosecute any alcohol or drug abuse patient.[facility] the event this information is protected by the Federal Confidentiality of Alcohol and Drug Abuse Patient Records regulations: The Federal rules restrict any use of the information to criminally investigate or prosecute any alcohol or drug abuse patient.[facility] Care Teams (unrecognized sec tion and content) Sap Senior Developer Relationship Specialty Start Date End Date Tariq Anders MD [address] [id number] PCP - General Family Practice 06/04/18 Team Status: Inactive Member Role Status Dates Dr. Kenzie Espana MD Attending Provider Active Team Status: Active Member Role Status Dates Dr. Kenzie Espana MD Primary Care Provider Active Team Status: Inactive Member Role Status Dates Dr. Kenzie Espana MD Primary Care Provider, Atten ding Provider Active Team Status: Inactive Member Role Status Dates Dr. Kenzie Espana MD Primary Care Tacho castaneda, Attending Provider, Referring Provider Active Sap Senior Developer Relationship Specialty Start Date End Date Tariq Anders MD [address] [place] [address] PCP - General Family Medicine 06/04/18 Sap Senior Developer Relationship Specialty Start Date End Date Tariq Anders MD [address] [place] [address] PCP - General Family Medicine 06/04/18 Team Status: Inactive Member Role Status Dates Dr. Kenzie Espana MD Primary Care Provider Active Start: August 06, 2024 End: August 06, 2024 Dr. Kenzie Espana MD Referring Provider Active Start: August 06, 2024 End: August 06, 2024 Essie Snow TRAY WORKER, TRAY WORKER-C Attending Provider Active Start: August 06, 2024 End: August 06, 2024 Team Status: Inactive Member Role Status Dates Dr. Kenzie Espana MD Primary Care Provider Active Start: August 06, 2024 End: August 06, 2024 Essie Snow TRAY WORKER, TRAY WORKER-C Attending Provider Active Start: August 06, 2024 End: August 06, 2024 Essie Snow TRAY WORKER, TRAY WORKER-C Referring Provider Active Start: August 06, 2024 End: August 06, 2024 Team Status: Inactive Member Role Status Dates Dr. Kenzie Espana MD Primary Care Provider Active Start: October 21, 2024 End: October 21, 2024 Dr. Kenzie Espana MD Referring Provider Active Start: October 21, 2024 End: October 21, 2024 Essie Snow TRAY WORKER, TRAY WORKER-C Attending Provider Active Start: October 21, 2024 End: October 21, 2024 Team Status: Inactive Member Role Status Dates Dr. Kenzie Espana MD Primary Care Provider Active Start: October 30, 2024 End: October 30, 2024 Dr. Kenzie Espana MD Referring Provider Active Start: October 30, 2024 End: October 30, 2024 SHAWN Maldonado Attending Provider Active St art: October 30, 2024 End: October 30, 2024 Team Status: Inactive Member Role Status Dates Dr. Kenzie Espana MD Primary Care Provider Active Start: October 30, 2024 End: October 30, 2024 SHAWN Maldonado Attending Provider Active St art: October 30, 2024 End: October 30, 2024 SHAWN Maldonado Referring Provider Active St art: October 30, 2024 End: October 30, 2024 Team Status: Inactive Member Role Status Dates Dr. Kenzie Espana MD Primary Care Provider Active Start: November 04, 2024 End: November 04, 2024 Dr. Kenzie Espana MD Referring Provider Active Start: November 04, 2024 End: November 04, 2024 Essie Snow NP, TRAY WORKER-C Attending Provider Active Start: November 04, 2024 End: November 04, 2024 Team Status: Inactive Member Role Status Dates Dr. Kenzie Espana MD Primary Care Provider Active Start: November 07, 2024 End: November 07, 2024 Dr. Kenzie Espana MD Referring Provider Active Start: November 07, 2024 End: November 07, 2024 BIM NURSE Attending Provider Active Start: Ok 2024 End: November 07, 2024 Team Status: Inactive Member Role Status Dates Dr. Kenzie Espana MD Primary Care Provider Active Start: November 07, 2024 End: November 07, 2024 Dr. Kenzie Espana MD Referring Provider Active Start: November 07, 2024 End: November 07, 2024 SHAWN Maldonado Attending Provider Active St art: November 07, 2024 End: November 07, 2024 Team Status: Inactive Member Role Status Dates Dr. Kenzie Espana MD Primary Care Provider Active Start: November 13, 2024 End: November 13, 2024 Dr. Kenzie Espana MD Referring Provider Active Start: November 13, 2024 End: November 13, 2024 SHAWN Maldonado Attending Provider Active St art: November 13, 2024 End: November 13, 2024 Team Status: Inactive Member Role Status Dates Dr. Kenzie Espana MD Primary Care Provider Active Start: November 26, 2024 End: November 26, 2024 Dr. Kenzie Espana MD Referring Provider Active Start: November 26, 2024 End: November 26, 2024 BIM NURSE Attending Provider Active Start: 2024 End: November 26, 2024 Sap Senior Developer Relationship Specialty Start Date End Date Kenzie Espana MD [address] [place] [phone] PCP - General Internal Medicine 12/05/24 Sap Senior Developer Relationship Specialty Start Date End Date Kenzie Espnaa MD [address] [place] [phone] PCP - General Internal Medicine 12/05/24 Team Status: Active Member Role/Relationship Status Dates Dr. Kenzie Espana MD Primary Care Provider Active Team Status: Inactive Member Role/Relationship Status Dates Dr. Kenzie Espana MD Primary Care Provider Active Start: October 21, 2024 End: October 21, 2024 Dr. Kenzie Espana MD Referring Provider Active Start: October 21, 2024 End: October 21, 2024 Essie Snow TRAY WORKER, TRAY WORKER-C Attending Provider Active Start: October 21, 2024 End: October 21, 2024 Team Status: Inactive Member Role/Relationship Status Dates Dr. Kenzie Espana MD Primary Care Provider Active Start: October 30, 2024 End: October 30, 2024 Dr. Kenzie Espana MD Referring Provider Active Start: October 30, 2024 End: October 30, 2024 SHAWN Maldonado Attending Provider Active St art: October 30, 2024 End: October 30, 2024 Team Status: Inactive Member Role/Relationship Status Dates Dr. Kenzie Espana MD Primary Care Provider Active Start: October 30, 2024 End: October 30, 2024 Bryant ESCOBAR PA Attending Provider Active St art: October 30, 2024 End: October 30, 2024 SHAWN Maldonado Referring Provider Active St art: October 30, 2024 End: October 30, 2024 Team Status: Inactive Member Role/Relationship Status Dates Dr. Kenzie Espaan MD Primary Care Provider Active Start: November 04, 2024 End: November 04, 2024 Dr. Kenzie Espana MD Referring Provider Active Start: November 04, 2024 End: November 04, 2024 Essie Snow TRAY WORKER, TRAY WORKER-C Attending Provider Active Start: November 04, 2024 End: November 04, 2024 Team Status: Inactive Member Role/Relationship Status Dates Dr. Kenzie Espana MD Primary Care Provider Active Start: November 07, 2024 End: November 07, 2024 Dr. Kenzie Espana MD Referring Provider Active Start: November 07, 2024 End: November 07, 2024 SHAWN Maldonado Attending Provider Active St art: November 07, 2024 End: November 07, 2024 Team Status: Inactive Member Role/Relationship Status Dates Dr. Kenzie Espana MD Primary Care Provider Active Start: November 13, 2024 End: November 13, 2024 Dr. Kenzie Espana MD Referring Provider Active Start: November 13, 2024 End: November 13, 2024 Bryant ESCOBAR PA Attending Provider Active St art: November 13, 2024 End: November 13, 2024 Team Status: Inactive Member Role/Relationship Status Dates Dr. Kenzie Espana MD Primary Care Provider Active Start: November 26, 2024 End: November 26, 2024 Dr. Kenzie Espana MD Referring Provider Active Start: November 26, 2024 End: November 26, 2024 SHAWN Maldonado Attending Provider Active St art: November 26, 2024 End: November 26, 2024 Team Status: Inactive Member Role/Relationship Status Dates Dr. Kenzie Espana MD Primary Care Provider Active Start: February 17, 2025 End: February 17, 2025 Dr. Kenzie Espana MD Attending Provider Active Start: February 17, 2025 End: February 17, 2025 Dr. Kenzie Espana MD Referring Provider Active Start: February 17, 2025 End: February 17, 2025 Goals (unrecognized section and content) Goals may be documented in a n alternate sectionGoals may be documented in an alternate sectionGoals may be documented in an alternate sectionGoals may be documented in an alternate sectionGoals may be documented in an alternate sectionGoals may be documented in an alternate sectionGoals may be documented in an alternate sectionGoals may be documented in an alternate sectionGoals may be documented in an alternate sectionGoals may be documented in an alternate section Reason for Visit (unrecogniz ed section and content) Reason Comments Establish Care Discuss weight loss Discuss ERT Discuss Frequent bouts of BV. Reason Comments New Patient Lung nodule FOR RECORDS PERTAINING TO PATIENTS WHO ARE OR HAVE BEEN ENROLLED IN A CHEMICAL DEPENDENCY/SUBSTANCEABUSE PROGRAM, SOME INFORMATION MAY BE OMITTED. This clinical summary was aggregated from multiple sources. Caution should be exercised in using it in the provision of clinical care. This summary normalizes information from multiple sources, and as a consequence, information in this document may materially change the coding, format and clinical context of patient data. In addition, data may be omitted in some cases. CLINICAL DECISIONS SHOULD BE BASED ON THE PRIMARY CLINICAL RECORDS. [facility] [employer] provides no warranty or guarantee of the accuracy or completeness of information in this document.
== END | disposition home or self-care (01) ==
LOC: LABSPEC 07:44
PROVIDERS: PCP Internal Medicine; Referring Provider Nurse Practitioner Women's Health; Visit Provider Nurse Practitioner Women's Health
DX: N89.8 Other specified noninflammatory disorders of vagina (principal)
CPT/HCPCS: 87070; 87205